=== PATIENT | female | born 2000 | race Caucasian/White ===

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

== ENCOUNTER 2021-01-12 05:56 | Emergency (ER) | payer OTHER, MEDICAID, SELFPAY ==
[2021-01-12 05:57] VITALS: BP 127/78; PULSE 101; RESP 16; TEMP 36.4; O2SAT 98; BMI 31.4
--- NOTE | 2021-01-12 06:16 | RAD_ITS ---
STUDY: X-RAY - RIGHT KNEE REASON FOR EXAM: Female, 20 years old. Injury TECHNIQUE: 4 view(s) of the knee. COMPARISON: Right knee x-ray February 12, 2019 FINDINGS: Normal visualized distal femur. There is visualized tunneling within the tibia. Normal proximal tibiofibular articulation. Normal medial femorotibial compartment. Normal lateral femorotibial compartment. There is minimal degenerative arthrosis of the patellofemoral articulation. The soft tissue structures are unremarkable. RAD/Knee 4 or More Views IMPRESSION: Status post anterior cruciate ligament repair. No visualized acute fracture. No visualized joint effusion. The visualized significant superficial soft tissue edema. There is a suggestion of minimal degenerative change. Electronically Signed: Diana Hernandez MD at 6:43 EDT Tel , Service support ,
--- NOTE | 2021-01-12 06:17 | ED.VIS.LOWEX ---
HPI History of Present Illness Chief Complaint: Lower Extremity Injury Informant: patient Occured/Mechanism Mechanism/Context: Yes injury and Yes fall Onset/Context/Timing Onset: Yesterday Current Severity: Mild Maximum Severity: Moderate Narrative Narrative: Patient presents secondary to posterior right knee pain. She states that she fell down approximately 10 steps at her house last night not realizing they were wet from the rain. She woke this morning around 4 AM with pain to the posterior knee. She did take ibuprofen at that time. Patient does have a history of a prior ACL repair to the right knee in 2017. She denies any anterior pain. She denies any other injury from the fall. [facility] Medical History Bipolar disorder Depressed Home Medications aripiprazole [Abilify] 30 mg PO DAILY 01/12/21 [History Last Taken Unknown] naproxen [Naprosyn] 500 mg PO BID PRN #20 tab 01/12/21 [Rx Last Taken Unknown] Allergy/AdvReac Type Severity Reaction Status Date / Time morphine Allergy Anaphylaxis Verified 11/25/20 22:23 Family History Other CVA (cerebral vascular accident) Hypertension Lymph node cancer Myocardial infarction Surgical History CEOT removed from jaw right knee ACL Social History Smoking Status: Never smoker ROS ROS ED Constitutional Constitutional ED: Denies chills or fever(s) Eyes Eyes: Denies change in vision ENT ENT ED: Denies rhinorrhea or sore throat Cardiovascular Cardiovascular: Denies chest pain Respiratory/Chest Respiratory/Chest: Denies cough or dyspnea Gastrointestinal Gastrointestinal: Denies abdominal pain, diarrhea or vomiting Musculoskeletal Musculoskeletal: Reports arthralgias; Denies back pain Integumentary Denies Abrasions or rash Neurologic Neurologic: Denies weakness Allergic/Immunologic Allergic/Immunologic ED: Denies urticaria EXAM Physical Exam Const Vital Signs: 01/12/21 05:57 Temperature 97.5 F L Temperature Source Oral Pulse Rate 101 H Respiratory Rate 16 Blood Pressure 127/78 H Blood Pressure Mean 94 Pulse Ox 98 Oxygen Delivery Method Room Air Positive well nourished and well developed General Appearance ED: well developed HEENT normocephalic Chest Wall inspection of chest normal and palpation of chest normal Resp normal respiratory effort and clear to auscultation bilaterally Cardio regular rate and regular rhythm GI non-tender Palpation: soft Extremity Extremity Narrative: Tenderness location of the musculature to the posterior right knee and proximal calf. No palpable masses or hematomas. No overlying skin change. Good range of motion of the knee without difficulty. Strong distal pulses. Patient does report decreased sensation to light touch of the lateral portion of the right lower leg, but states this is chronic from her surgery and unchanged from baseline. Psych mental status grossly normal Skin Lesions: no lesions Rashes: no rashes MDM MDM MDM Narrative Medical decision making narrative: Right knee x-rays obtained. Treatment and Re-Evaluation Comments:: Right knee x-ray per mitral rotation reveals no acute fracture. Meliton wrap is applied to the right knee. She is given a work note for today. She will begin a prescription for naproxen and referred to Dr. Dykes who she has seen most recently. Discharge Plan Triage Chief Complaint: Lower Extremity Injury ED Provider: Jaja Matute Dx/Rx/DC Orders Clinical Impression: Right knee sprain Instructions: ED Knee Sprain Prescriptions: New naproxen [Naprosyn] 500 mg tablet 500 mg PO BID PRN (Reason: pain) Qty: 20 RF: 0 No Action aripiprazole [Abilify] 30 mg Tablet 30 mg PO DAILY RF: 0 Stand Alone Forms: ED Work / School Excuse Primary Care Provider: Jigna Gamboa Referrals: Jigna Gamboa DO [Primary Care Provider] - Irvin Dykes DO [STAFF PHYSICIAN] - As Needed Disposition Disposition: Home, Self Care
== END 2021-01-12 06:46 | disposition home or self-care (01) ==
PROVIDERS: Emergency Provider Emergency Medicine; PCP Pediatrics
DX: S83.91XA Sprain of unspecified site of right knee, initial encounter (principal); F31.9 Bipolar disorder, unspecified; Z79.899 Other long term (current) drug therapy; W10.9XXA Fall (on) (from) unspecified stairs and steps, initial encounter
CPT/HCPCS: 73564; 99282

== ENCOUNTER 2021-01-24 21:12 | Emergency (ER) | payer OTHER, MEDICAID, SELFPAY ==
[2021-01-24 21:13] VITALS: BP 126/75; PULSE 64; RESP 16; TEMP 36.2; O2SAT 100; BMI 35.1
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
[2021-01-24] MEDS: 0.9% Normal Saline 1,000 ML 150 ML IV (22:53)
[2021-01-24 22:56] LABS: Absolute Lymphocyte Count 3.75 X10^3/uL (0.83-4.51); Absolute Neutrophil Count 4.4 X10^3/uL (2.0-7.7); Basophil# 0.06 X10^3/uL; Basophil% 0.6 % (0-1); Eosinophil# 0.55 X10^3/uL; Eosinophils% 5.7 % (0-5); Hematocrit 37.1 % (37-47); Hemoglobin 12.4 g/dL (12.0-15.0); Lymphocyte # 3.75 X10^3/ul (0.83-4.51); Lymphocyte % 39.2 % (19-41); Mean Corp Hgb Conc 33.4 g/dL (32-36); Mean Corpuscular Volume 86.9 fL (81-99); Mean Platelet Vol. 10.3 fl (6.2-12.0); Monocyte# 0.81 X10^3/uL; Monocyte% 8.5 % (0-10); NRBC Flagged by Analyzer 0 % (0-5); Neutrophil # 4.36 X10^3/uL (2.7-7.7); Neutrophil % 45.6 % (47-70); Platelet Count 352 K/mm3 (150-450); RBC Distribution Width CV 12.1 % (11.6-14.6); RBC Distribution Width SD 38.6 fl (35.1-43.9); Red Blood Count 4.27 M/mm3 (4.2-5.4); White Blood Count 9.6 K/mm3 (4.4-11.0)
[2021-01-24 23:11] LABS: Internal QC Validated? YES +Cl - CLEAR BKGD; Pregnancy, Serum, hCG Quali. NEGATIVE Negative
[2021-01-24 23:13] LABS: ALB/GLOB Ratio 0.8 RATIO (0.9-2.4); AST(SGOT) 24 U/L (15-37); Alanine Aminotransfer ALT/SGPT 32 U/L (13-56); Albumin, Serum 3.4 g/dL (3.2-5.0); Alkaline Phosphatase 98 U/L (45-117); Anion Gap 7 (5-15); BUN 7 mg/dL (7-18); BUN/Creat Ratio 9.9 RATIO (10-20); Calcium,Total 8.3 mg/dL (8.5-10.1); Chloride 108 mmol/L (98-107); Creatinine, Serum 0.71 mg/dL (0.55-1.02); EST Glomerular Filtration Rate 112 mL/min (>60); Est Glom Filt Rate - Afr Amer 136 mL/min (>60); Estimated Creatinine Clearance 119.31 ml/min; Glucose 91 mg/dL (74-106); Potassium 3.8 mmol/L (3.5-5.1); Protein, Total 7.4 g/dL (6.4-8.2); Sodium Level 140 mmol/L (136-145)
[2021-01-24 23:29] VITALS: BP 140/76; PULSE 86; RESP 17; O2SAT 98
[2021-01-24 23:39] LABS: Red Blood Cells-Urine 0 SEEN /hpf (0-5)
[2021-01-24 23:40] LABS: Color, Urine Yellow (Yellow); Glucose, Dipstick Normal (Normal); Ketone-Dipstick Negative (Negative); Leukocyte Esterase-Dipstick Negative /ul (Negative); Nitrite-Dipstick Negative (Negative); Occult Blood-Urine Negative /ul (Negative); Protein-Dipstick Negative (Negative); Urine Bilirubin Dipstick Negative (Negative); Urine Clarity Clear (Clear); Urine Urobilinogen Normal (Normal)
[2021-01-25 00:03] LABS: Bacteria 1+ /hpf (None Seen); Mucous, Urine 1+ /hpf (<or=2+); Squamous Epithelial Cells - UA 5-10 SEEN /hpf (5-10); White Blood Cells 0-5 SEEN /hpf (0-5)
[2021-01-25 00:15] VITALS: BP 138/74; PULSE 74; RESP 16; O2SAT 97
== END 2021-01-25 00:23 | disposition home or self-care (01) ==
PROVIDERS: Emergency Provider Emergency Medicine
DX: B34.9 Viral infection, unspecified (principal); Z79.1 Long term (current) use of non-steroidal anti-inflammatories (NSAID); Z79.899 Other long term (current) drug therapy
CPT/HCPCS: 80053; 81001; 84703; 85025; 87426; 99283; J7030; A4216

== ENCOUNTER 2021-01-31 19:27 | Emergency (ER) | payer OTHER, MEDICAID, SELFPAY ==
[2021-01-31 19:27] VITALS: BP 127/55; PULSE 94; RESP 18; TEMP 35.7; O2SAT 98; BMI 35.3
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
--- NOTE | 2021-01-31 21:14 | ED.RN ---
PT left with s/o, unable to wait for discharge instructions.
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
== END 2021-01-31 20:36 | disposition home or self-care (01) ==
PROVIDERS: Emergency Provider Emergency Medicine
DX: S80.811A Abrasion, right lower leg, initial encounter (principal); F31.9 Bipolar disorder, unspecified; W34.010A Accidental discharge of airgun, initial encounter; Z79.899 Other long term (current) drug therapy
CPT/HCPCS: 73590; 99282

== ENCOUNTER 2021-03-01 17:06 | Emergency (ER) | payer OTHER, MEDICAID, SELFPAY ==
[2021-03-01 17:06] VITALS: BP 137/60; PULSE 99; RESP 18; TEMP 36.3; O2SAT 98; BMI 35.2
--- NOTE | 2021-03-01 17:37 | EKG12_ITS ---
Test Reason : CP Blood Pressure : / mmHG Vent. Rate : 065 BPM Atrial Rate : 065 BPM P-R Int : 158 ms QRS Dur : 094 ms QT Int : 390 ms P-R-T Axes : 028 053 041 degrees QTc Int : 405 ms Sinus rhythm with marked sinus arrhythmia Otherwise normal ECG Confirmed by ROSY JON, RAYMOND ([id number]), editor publications CASSIE BERNSTEIN ([id number]) on 03/02/2021 11:28:45 AM Referred By: SERGIO Confirmed By:RAYMOND GALLEGOS MD
--- NOTE | 2021-03-01 17:46 | ED.VIS.CHEST ---
HPI History of Present Illness Chief Complaint: Chest Pain Narrative Narrative: 20-year-old female with left-sided chest pain which is reproducible for a month. She said that she does not take anything for it because she does not think anything will help. She has not tried ice or heat, ibuprofen, Tylenol. She denies shortness of breath, fever, chills. Patient does state that 2 weeks ago she had an episode of syncope but that she does not have return of this. There is no history of sudden cardiac in her family. She does relate heart disease in her family but not at an early age such as 20. Patient is eating and drinking normally. Is making normal urine and stool. [facility] Medical History Bipolar disorder Depressed Home Medications aripiprazole [Abilify] 5 mg PO DAILY 01/12/21 [History Last Taken Unknown] Allergy/AdvReac Type Severity Reaction Status Date / Time morphine Allergy Anaphylaxis Verified 03/01/21 17:06 Family History Other CVA (cerebral vascular accident) Hypertension Lymph node cancer Myocardial infarction Surgical History CEOT removed from jaw right knee ACL Social History Smoking Status: Never smoker ROS ROS ED Constitutional Constitutional ED: Denies chills or fever(s) Eyes Eyes: Denies none or blurry vision ENT ENT ED: Denies rhinorrhea or sore throat Cardiovascular Cardiovascular: Reports chest pain and other Details: Syncope 2 weeks ago ; Denies palpitations or racing heartbeat Respiratory/Chest Respiratory/Chest: Denies cough, dyspnea, dyspnea on exertion or sputum Gastrointestinal Gastrointestinal: Denies abdominal pain, nausea or vomiting Genitourinary Genitourinary ED: Denies dysuria or hematuria Musculoskeletal Musculoskeletal: Denies arthralgias or myalgias Integumentary Denies abscess or rash Neurologic Neurologic: Denies headache(s) or paresthesias EXAM Physical Exam Const Vital Signs: 03/01/21 17:06 03/01/21 18:25 03/01/21 18:30 Temperature 97.4 F L Temperature Source Temporal Pulse Rate 99 78 Pulse Rate [Lying] 61 Pulse Rate [Sitting] 65 Pulse Rate [Standing] 91 Respiratory Rate 18 Blood Pressure 137/60 H 104/65 Blood Pressure [Lying] 113/63 Blood Pressure [Sitting] 120/68 Blood Pressure [Standing] 104/65 Blood Pressure Mean 85 78 Blood Pressure Mean [Lying] 79 Blood Pressure Mean [Sitting] 85 Blood Pressure Mean [Standing] 78 Pulse Ox 98 96 Oxygen Delivery Method Room Air Room Air Positive well nourished General Appearance ED: NAD; Negative for pallor HEENT normocephalic and atraumatic Chest Wall Chest: tenderness sternoclavicular joint left Resp normal respiratory effort Effort and Inspection: respiratory distress Cardio regular rate and regular rhythm Neuro oriented x3 Sensorium / Orientation: awake and alert Psych mental status grossly normal Skin General Skin Exam: Negative for jaundice or pallor Heart Score History: Slightly/Non-Suspicious ECG: Normal Age: </= 45 years Risk Factors: No Risk Factors Score: 0 MDM MDM MDM Narrative Medical decision making narrative: I suspect patient has costochondritis based on her exam and her history of a month of pain as well as it is being reproducible. I do not believe this is cardiac. She is PERC negative. Her lungs are clear on exam. Her vital signs are stable and she is afebrile. I will obtain a chest x-ray and an EKG as well as orthostatic vital signs as she had an episode of syncope 2 weeks ago. I do not believe the patient needs blood work at this time. EKG on my interpretation shows a normal sinus rhythm with a ventricular to 65 bpm without signs of ischemic change or dysrhythmia. No signs of Brugada or WPW. No evidence of hypertrophic cardiomyopathy. Orthostatic vital signs are negative. Chest x-ray my interpretation shows no acute cardiopulmonary process and the radiologist does agree. Clinically the patient has costochondritis and needs Tylenol and ibuprofen alternating doses. I do not believe she needs blood work she is 20 and has no cardiac risk factors and is well she is PERC negative. Patient will be counseled of this. She will be discharged home in stable condition. Impression: 1 costochondritis 2. History of syncope Radiography Diagnostic Testing: Clinical Impression(s) from Imaging Studies Chest X-Ray 03/01/21 18:10 IMPRESSION: No radiographic evidence of acute cardiopulmonary disease. Electronically Signed: Shaw Hopkins MD at 18:25 EST , Service support , Discharge Plan Triage Chief Complaint: Chest Pain ED Provider: Car Pace Dx/Rx/DC Orders Prescriptions: No Action aripiprazole [Abilify] 30 mg Tablet 5 mg PO DAILY RF: 0 Primary Care Provider: Care Physician,No Primary
[2021-03-01] MEDS: Ketorolac 15 MG/ML Vial IV (18:02)
--- NOTE | 2021-03-01 18:10 | RAD_ITS ---
EXAM: XR CHEST, 1 VIEW CLINICAL INDICATION: chest pain TECHNIQUE: Frontal view of the chest. This report was created using [employer] report generation technology. COMPARISON: None. FINDINGS: LUNGS AND PLEURAL SPACES: Unremarkable. No consolidation or edema. No pneumothorax. No effusion. HEART: Unremarkable. Cardiac silhouette not enlarged. MEDIASTINUM: Central airways and mediastinal contour are unremarkable. BONES/JOINTS: Unremarkable. SOFT TISSUES: Unremarkable. RAD/Chest 1 View (Portable) IMPRESSION: No radiographic evidence of acute cardiopulmonary disease. Electronically Signed: Shaw Hopkins MD at 18:25 EST , Service support ,
[2021-03-01 18:25] VITALS: BP 104/65; BP 113/63; BP 120/68; PULSE 61; PULSE 65; PULSE 91
[2021-03-01 18:30] VITALS: BP 104/65; PULSE 78; O2SAT 96
== END 2021-03-01 19:14 | disposition home or self-care (01) ==
PROVIDERS: Emergency Provider Student in an Organized Health Care Education/Training Program
DX: M94.0 Chondrocostal junction syndrome [Tietze] (principal); Z79.899 Other long term (current) drug therapy
CPT/HCPCS: 71045; 93005; 96374; 99283; J7030

== ENCOUNTER 2021-03-22 11:54 | Emergency (ER) | payer OTHER, MEDICAID, SELFPAY ==
[2021-03-22 11:55] VITALS: BP 119/74; PULSE 71; RESP 15; TEMP 36.1; O2SAT 99; BMI 35.5
--- NOTE | 2021-03-22 11:56 | RAD_ITS ---
STUDY: X-RAY - RIGHT HAND REASON FOR EXAM: Right thumb and hand pain and swelling, right thumb injury. TECHNIQUE: 3 view(s) of the hand. COMPARISON: Radiographs 11/16/2020. FINDINGS: Normal radiocarpal articulation. Normal distal radioulnar joint. Normal visualized carpal bones. Normal carpal articulations Normal carpometacarpal articulation of the thumb. Normal second through fifth carpometacarpal joints. There is healed fracture deformity of the neck of the fifth metacarpal. Normal metacarpophalangeal joint of the thumb. Normal interphalangeal joint of the thumb. Normal proximal and distal phalanges of the thumb. Normal metacarpophalangeal joints of the second through fifth fingers. Normal proximal and distal interphalangeal joints of the second through fifth fingers. Normal phalanges of the second through fifth fingers. The soft tissue structures are unremarkable. RAD/Hand Min 3 Views IMPRESSION: Healed fracture of the fifth metacarpal. No demonstrated acute fracture. Electronically Signed: Winston De La O MD at 14:15 EST Tel , Service support ,
--- NOTE | 2021-03-22 12:24 | EX.ED.UPPERE ---
HPI History of Present Illness Chief Complaint: Upper Extremity Injury Informant: patient Narrative Narrative: Patient slipped and fell on her right hand this morning due to icy steps. She has pain in her thumb mostly at the MCP joint. No wrist pain elbow pain shoulder pain. She never hit her head. No other areas of discomfort. She is right-hand dominant. Worse with motion better with rest. PFSH PFSH Medical History Bipolar disorder Depressed Home Medications aripiprazole [Abilify] 5 mg PO DAILY 01/12/21 [History Last Taken Unknown] Allergy/AdvReac Type Severity Reaction Status Date / Time morphine Allergy Anaphylaxis Verified 03/22/21 11:57 Family History Other CVA (cerebral vascular accident) Hypertension Lymph node cancer Myocardial infarction Surgical History CEOT removed from jaw right knee ACL Social History Smoking Status: Never smoker ROS ROS ED Constitutional Constitutional ED: Denies fever(s) Eyes Eyes: Denies blurry vision Cardiovascular Cardiovascular: Denies palpitations Gastrointestinal Gastrointestinal: Denies nausea or vomiting Musculoskeletal Musculoskeletal: Reports other Details: See history of present illness. ; Denies back pain, myalgias or neck pain Integumentary Reports other Details: No abrasion or skin changes. ; Denies rash Neurologic Neurologic: Denies paresthesias or weakness EXAM Physical Exam Const Vital Signs: 03/22/21 11:55 Temperature 96.9 F L Temperature Source Temporal Pulse Rate 71 Respiratory Rate 15 Blood Pressure 119/74 Blood Pressure Mean 89 Pulse Ox 99 Oxygen Delivery Method Room Air Positive well nourished and well developed General Appearance ED: well developed and NAD Resp normal respiratory effort Extremity normal to inspection Extremity Narrative: No swelling at this point. She does have tenderness mostly right at the MCP joint. No thenar eminence tenderness. There is no snuffbox or wrist tenderness. Range of motion of the wrist is good. I overall see no deformity at this time. No abrasion. Capillary refill is normal. Distal sensation is normal. Range of motion is a little bit limited due to discomfort. Neuro no focal motor deficits and no sensory deficits noted Sensorium / Orientation: alert Skin Lesions: no lesions Rashes: no rashes MDM MDM MDM Narrative Medical decision making narrative: Three-view x-ray of the hand looked at by me shows no sign of fracture or dislocation. I think ice rest and nonsteroidals are appropriate. We will offer her an aluminum splint just to wear for a few days for comfort. Home although I would take this off several times a day to put thumb through gentle passive range of motion. Follow-up if not getting markedly better in 3 to 7 days Discharge Plan Triage Chief Complaint: Upper Extremity Injury ED Provider: Charli Hendricks Dx/Rx/DC Orders Clinical Impression: Fall from slipping, Contusion of right thumb Instructions: ED Finger Contusion Prescriptions: No Action aripiprazole [Abilify] 30 mg Tablet 5 mg PO DAILY RF: 0 Primary Care Provider: Care Physician,No Primary Referrals: Garrison Avelar MD [STAFF PHYSICIAN] - 1 Week if not improving Care Physician,No Primary [Primary Care Provider] - Disposition Disposition: Home, Self Care
[2021-03-22 14:09] VITALS: BP 124/76; PULSE 80; RESP 17; O2SAT 99
== END 2021-03-22 14:10 | disposition home or self-care (01) ==
PROVIDERS: Emergency Provider Emergency Medicine
DX: S60.011A Contusion of right thumb without damage to nail, initial encounter (principal); F31.9 Bipolar disorder, unspecified; W01.0XXA Fall on same level from slipping, tripping and stumbling without subsequent striking against object, initial encounter; Z79.899 Other long term (current) drug therapy
CPT/HCPCS: 73130; 99283

== ENCOUNTER 2021-04-04 17:40 | Emergency (ER) | payer OTHER, MEDICAID, SELFPAY ==
[2021-04-04 17:41] VITALS: BP 128/70; PULSE 94; RESP 16; TEMP 36.6; O2SAT 99; BMI 35.5
== END 2021-04-04 19:48 | disposition left against medical advice (07) ==
LOC: ED 19:50
DX: Z53.21 Procedure and treatment not carried out due to patient leaving prior to being seen by health care provider (principal)

== ENCOUNTER 2021-05-30 09:54 | Emergency (ER) | payer MEDICAID, SELFPAY ==
[2021-05-30 09:55] VITALS: BP 147/64; PULSE 79; RESP 16; TEMP 36.6; O2SAT 100; BMI 35.5
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
--- NOTE | 2021-05-30 10:22 | RAD_ITS ---
STUDY: X-RAY - UNILATERAL RIBS ( RIGHT ) WITH CHEST REASON FOR EXAM: Female, 20 years old. Injury TECHNIQUE - RIBS: 2 view(s) of the ribs. TECHNIQUE - CHEST: Single PA view of the chest. COMPARISON: None. FINDINGS - RIBS: Normal visualized ribs without a demonstrated fracture. FINDINGS - CHEST: The lungs are clear and expanded. There is no demonstrated pleural abnormality. Normal size heart. Normal mediastinum and kody. Normal visualized pulmonary arteries. Normal visualized aortic arch and descending thoracic aorta. Normal visualized thoracic spine. Normal visualized ribs, clavicles, and shoulders. There is no demonstrated abnormality of the visualized soft tissue structures of the upper abdomen. RAD/Ribs Uni Min 3V w/PA Chest IMPRESSION: RIBS: Normal x-ray examination of the ribs. CHEST: Normal x-ray examination of the chest. Electronically Signed: Magdi Walker MD at 10:48 EST ,
[2021-05-30] MEDS: Naproxen 500 MG Tablet PO (10:27)
== END 2021-05-30 11:10 | disposition home or self-care (01) ==
LOC: ED 11:05
PROVIDERS: Emergency Provider Emergency Medicine; Visit Provider Emergency Medicine
DX: S20.219A Contusion of unspecified front wall of thorax, initial encounter (principal); F31.9 Bipolar disorder, unspecified; V49.88XA Car occupant (driver) (passenger) injured in other specified transport accidents, initial encounter; Z79.899 Other long term (current) drug therapy
CPT/HCPCS: 71101; 99283

== ENCOUNTER 2021-06-13 18:21 | Emergency (ER) | payer MEDICAID, SELFPAY ==
[2021-06-13 18:21] VITALS: BP 119/76; PULSE 77; RESP 18; TEMP 36; O2SAT 98; BMI 35.5
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
--- NOTE | 2021-06-13 20:11 | ED.RN ---
CALLED AT 2010, NO ANSWER.
== END 2021-06-13 23:59 | disposition left against medical advice (07) ==
LOC: ED 06-14 00:19
DX: Z53.21 Procedure and treatment not carried out due to patient leaving prior to being seen by health care provider (principal)
CPT/HCPCS: 73130

== ENCOUNTER 2021-08-25 07:41 | Emergency (ER) | payer MEDICAID, SELFPAY ==
[2021-08-25 07:43] VITALS: BP 132/71; PULSE 74; RESP 14; TEMP 35.7; O2SAT 98; BMI 36.5
--- NOTE | 2021-08-25 07:56 | RAD_ITS ---
STUDY: X-RAY - RIGHT FOOT CLINICAL: Female, 20 years old. Injury TECHNIQUE: 3 view(s) of the foot. COMPARISON: None. FINDINGS: Normal talus, calcaneus, and tarsal bones. Normal visualized subtalar, talonavicular, calcaneocuboid, tarsal and tarsometatarsal articulations. Normal metatarsi. Normal metatarsophalangeal joint of the great toe. Normal tibial and fibular sesamoid bones. Normal interphalangeal joint of the great toe. Normal phalanges of the great toe. Normal second through fifth metatarsophalangeal joints. Normal interphalangeal joints and phalanges of the lesser toes. The soft tissue structures are unremarkable. RAD/Foot min 3 Views IMPRESSION: Normal x-ray examination of the foot. Electronically Signed: Magdi Walker MD at 8:35 EDT ,
--- NOTE | 2021-08-25 08:00 | RAD_ITS ---
STUDY: X-RAY - RIGHT ANKLE REASON FOR EXAM: Female, 20 years old. Injury TECHNIQUE: 3 view(s) of the ankle. COMPARISON: None. FINDINGS: Normal visualized distal tibia and fibula. Normal medial and lateral malleoli. Normal tibiotalar articulation and ankle mortise. Normal visualized talus and calcaneus. The visualized subtalar, talonavicular, calcaneocuboid and tarsal articulations are normal. Lateral soft tissue swelling. RAD/Ankle min 3 Views IMPRESSION: Lateral soft tissue swelling. Electronically Signed: Magdi Walker MD at 8:34 EDT ,
[2021-08-25] MEDS: Naproxen 250 MG Tablet 500 MG PO (08:02)
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
== END 2021-08-25 09:13 | disposition home or self-care (01) ==
PROVIDERS: Emergency Provider Emergency Medicine; Visit Provider Emergency Medicine
DX: S93.401A Sprain of unspecified ligament of right ankle, initial encounter (principal); E66.9 Obesity, unspecified; X50.1XXA Overexertion from prolonged static or awkward postures, initial encounter
CPT/HCPCS: 73610; 73630; 99283

== ENCOUNTER 2021-11-14 13:59 | Emergency (ER) | payer MEDICAID, SELFPAY ==
[2021-11-14 14:00] VITALS: BP 131/77; PULSE 108; RESP 18; TEMP 37.1; O2SAT 97; BMI 35.7
[2021-11-14] MEDS: Metoclopramide 10 MG Tablet PO (14:38)
--- NOTE | 2021-11-14 15:12 | EX.ED.VIS.UR ---
HPI HPI - URI History of Present Illness Chief Complaint: Cough Informant: patient Onset/Context/Timing Onset: Days (3) Context: Gradual Onset Timing: Continuous Quality: Malaise Location: All over Current Severity: Moderate Maximum Severity: Moderate Associated Symptoms Associated Symptoms: Positive for Nasal Congestion, Headache, Nausea, Vomiting, Diarrhea and Nonproductive cough; Negative for Shortness of Breath or Chest Pain Narrative Narrative: Patient with COVID symptoms including loss of taste for the past 2 or 3 days. She did not test at home, she is never been vaccinated. She is healthy otherwise. ROS ROS ED Constitutional Constitutional ED: Reports body ache(s), chills, fatigue, fever(s), headache(s) and malaise Eyes Eyes: Denies change in vision or diplopia ENT ENT ED: Denies rhinorrhea or sore throat Cardiovascular Cardiovascular: Denies chest pain or palpitations Respiratory/Chest Respiratory/Chest: Reports cough, dyspnea and dyspnea on exertion Gastrointestinal Gastrointestinal: Reports diarrhea, nausea and vomiting; Denies abdominal pain Genitourinary Genitourinary ED: Denies dysuria or hematuria Musculoskeletal Musculoskeletal: Denies back pain or neck pain Integumentary Denies abscess or rash Neurologic Neurologic: Reports headache(s); Denies paresthesias or weakness Psychiatric Psychiatric: Denies anxiety or suicidal thoughts [facility] Medical History Abrasion of right leg Bipolar disorder Depressed Mild dehydration Other tear of lateral meniscus, current injury, right knee, subsequent encounter Other tear of medial meniscus, current injury, right knee, initial encounter (09/19/16) Sprain of anterior cruciate ligament of right knee, initial encounter (08/16/16) Sprain of anterior cruciate ligament of right knee, subsequent encounter Home Medications NK 11/14/21 [History Last Taken Unknown] Allergy/AdvReac Type Severity Reaction Status Date / Time morphine Allergy Anaphylaxis Verified 11/14/21 14:00 Family History Other CVA (cerebral vascular accident) Hypertension Lymph node cancer Myocardial infarction Surgical History CEOT removed from jaw right knee ACL Social History Smoking Status: Never smoker EXAM Physical Exam Const Vital Signs: 11/14/21 14:00 11/14/21 14:06 11/14/21 14:06 Temperature 98.7 F Temperature Source Temporal Pulse Rate 108 H Respiratory Rate 18 Respiratory Effort Normal Non-Labored Normal Non-Labored Respiratory Depth Normal Respiratory Pattern Normal Normal Blood Pressure 131/77 H Blood Pressure Mean 95 Pulse Ox 97 Oxygen Delivery Method Room Air Positive well nourished and well developed Constitutional Narrative: Malaised-appearing, no distress General Appearance ED: well developed and NAD HEENT Reports moist mucous membranes normocephalic and atraumatic Eyes PERRL and EOMs intact bilaterally Neck full ROM and supple Resp normal respiratory effort and clear to auscultation bilaterally Cardio regular rate, regular rhythm and no murmurs Rate: Negative for tachycardic GI non-tender and non-distended Auscultation: normoactive bowel sounds Palpation: soft Back/Spine no CVA tenderness General Back: other FROM Extremity normal to inspection and no calf tenderness General Extremety ED: Negative for edema, pulses abnormal or tenderness General Extremity: Negative for edema or pulses abnormal Neuro oriented x3, CN's II-XII intact bilaterally and no sensory deficits noted Sensorium / Orientation: awake and alert Motor Exam: strength 5/5 throughout Skin no rashes or lesions noted and no wounds MDM MDM MDM Narrative Medical decision making narrative: COVID swab is positive confirming COVID-19. Given that this patient is 21 and healthy, she is at relatively low risk for progression to moderate-severe disease especially during the current omicron 5 variant. At this time she will be discharged with symptomatic treatment. We discussed reasons to return. Discharge Plan Triage Chief Complaint: Cough ED Provider: Johann Ovalle Dx/Rx/DC Orders Clinical Impression: COVID-19 Instructions: Coronavirus Disease 2019 (COVID-19): Caring for Yourself or Others Prescriptions: No Action NK Primary Care Provider: Care Physician,No Primary Referrals: Care Physician,No Primary [Primary Care Provider] - Doctor,Your [STAFF PHYSICIAN] - As Needed Activity Restrictions/Additional Instructions: Your COVID test is positive. Stay away from other people. CDC states that you may stop wearing an N95 mask around other people after 10 days of illness. This would be next Saturday. Try to get a home portable pulse oximeter and closely watch your oxygen levels periodically. If you stay below 90% for more than a minute or so, and/or you are feeling like your breathing is getting worse, return to the emergency department for further evaluation. Disposition Disposition: Home, Self Care
--- NOTE | 2021-11-14 15:29 | ED.RN ---
pulse ox given at dc
== END 2021-11-14 15:29 | disposition home or self-care (01) ==
PROVIDERS: Emergency Provider Emergency Medicine; Visit Provider Emergency Medicine
DX: U07.1 COVID-19 (principal)
CPT/HCPCS: 87811; 99283

== ENCOUNTER 2021-12-05 23:36 | Emergency (ER) | payer MEDICAID, SELFPAY ==
[2021-12-05 23:37] VITALS: BP 128/76; PULSE 76; RESP 18; TEMP 36.1; O2SAT 97; BMI 35.5
--- NOTE | 2021-12-05 23:43 | EX.ED.UPPERE ---
HPI History of Present Illness Chief Complaint: Upper Extremity Injury Informant: patient Narrative Narrative: 21-year-old female states that 2 hours ago she tripped going down her stairs and injured her right hand. She notes swelling and pain over the fifth and fourth MCP joints. She states is very painful for her to straighten her fingers but she is able to do it. She denies any other injuries. She states that she tried to go to work but just could not function due to the pain [facility] Medical History Abrasion of right leg Bipolar disorder Depressed Mild dehydration Other tear of lateral meniscus, current injury, right knee, subsequent encounter Other tear of medial meniscus, current injury, right knee, initial encounter (09/19/16) Sprain of anterior cruciate ligament of right knee, initial encounter (08/16/16) Sprain of anterior cruciate ligament of right knee, subsequent encounter Home Medications NK 11/14/21 [History Last Taken Unknown] Allergy/AdvReac Type Severity Reaction Status Date / Time morphine Allergy Anaphylaxis Verified 11/14/21 14:00 Family History Other CVA (cerebral vascular accident) Hypertension Lymph node cancer Myocardial infarction Surgical History CEOT removed from jaw right knee ACL Social History (Updated 12/05/21 @ 23:[address] Jhonathan Giordano DO) current occupational status: employed Smoking Status: Never smoker ROS ROS ED Constitutional Constitutional ED: Denies chills or weight loss Eyes Eyes: Denies change in vision or diplopia ENT ENT ED: Denies ear pain, rhinorrhea or sore throat Cardiovascular Cardiovascular: Denies chest pain, orthopnea, palpitations or racing heartbeat Respiratory/Chest Respiratory/Chest: Denies cough, dyspnea or orthopnea Gastrointestinal Gastrointestinal: Denies abdominal pain, diarrhea, nausea or vomiting Genitourinary Genitourinary ED: Denies dysuria, hematuria or urinary frequency Musculoskeletal Musculoskeletal: Reports other Details: See history of present illness ; Denies arthralgias or myalgias Integumentary Denies abscess or rash Neurologic Neurologic: Denies headache(s) or weakness Psychiatric Psychiatric: Denies anxiety, depression, suicidal ideation or suicidal thoughts Endocrine Endocrinology: Denies polydipsia, polyphagia or polyuria Allergic/Immunologic Allergic/Immunologic ED: Denies mouth swelling, tongue swelling or urticaria EXAM Physical Exam Const Vital Signs: 12/05/21 23:37 Temperature 97 F L Temperature Source Temporal Pulse Rate 76 Respiratory Rate 18 Blood Pressure 128/76 H Blood Pressure Mean 93 Pulse Ox 97 Oxygen Delivery Method Room Air Positive well nourished and well developed General Appearance ED: well developed HEENT Reports normocephalic, head/scalp atraumatic and moist mucous membranes Eyes PERRL and EOMs intact bilaterally Neck no lymphadenopathy, supple and no JVD Resp normal respiratory effort and clear to auscultation bilaterally Cardio regular rate, regular rhythm and no murmurs GI normal to inspection, nondistended, normoactive bowel sounds and non-tender Palpation: soft Back/Spine no CVA tenderness and normal ROM Extremity Extremity Narrative: There is some mild swelling and contusion located over the fourth and the fifth MCP joint of the right hand. Tendon function appears normal. NVI. General Extremety ED: Negative for edema General Extremity: Negative for edema Neuro oriented x3 and CN's II-XII intact bilaterally Sensorium / Orientation: alert Motor Exam: strength 5/5 throughout Psych mental status grossly normal Mood & Affect: Negative for depressed or tearful Skin no rashes or lesions noted and no wounds MDM MDM MDM Narrative Medical decision making narrative: My interpretation of the plain films of the right hand is no acute fracture. Patient be discharged home with supportive care recommend Tylenol Motrin and ice. Return if worsening or concerns follow-up with primary care 10 to 14 days if not improved Discharge Plan Triage Chief Complaint: Upper Extremity Injury ED Provider: Jhonathan Giordano Dx/Rx/DC Orders Clinical Impression: Contusion of hand, right, Hand pain, right Instructions: ED Hand Contusion Prescriptions: No Action NK Primary Care Provider: Car Singh NP Referrals: Care Physician,No Primary [Non-Staff] - Car Singh NP, [employer] [Primary Care Provider] - As Needed Disposition Disposition: Home, Self Care
--- NOTE | 2021-12-05 23:48 | RAD_ITS ---
STUDY: X-RAY - RIGHT HAND REASON FOR EXAM: Female, 21 years old. Fall down steps, right fourth and fifth digit pain TECHNIQUE: 3 view(s) of the hand. COMPARISON: 03/22/2021 FINDINGS: Normal radiocarpal articulation. Normal distal radioulnar joint. Normal visualized carpal bones. Normal carpal articulations Normal carpometacarpal articulation of the thumb. Normal second through fifth carpometacarpal joints. Normal metacarpi. Normal metacarpophalangeal joint of the thumb. Normal interphalangeal joint of the thumb. Normal proximal and distal phalanges of the thumb. Normal metacarpophalangeal joints of the second through fifth fingers. Normal proximal and distal interphalangeal joints of the second through fifth fingers. Normal phalanges of the second through fifth fingers. The soft tissue structures are unremarkable. RAD/Hand Min 3 Views IMPRESSION: The fourth and fifth digits appear intact. No acute abnormal finding. Electronically Signed: Branden Aguilar MD at 0:24 EDT ,
[2021-12-06 00:34] VITALS: BP 128/76; PULSE 76; RESP 18; O2SAT 97
== END 2021-12-06 00:35 | disposition home or self-care (01) ==
PROVIDERS: Emergency Provider Emergency Medicine; PCP Nurse Practitioner; Visit Provider Emergency Medicine
DX: S60.221A Contusion of right hand, initial encounter (principal); W18.40XA Slipping, tripping and stumbling without falling, unspecified, initial encounter; Y93.89 Activity, other specified; Y99.9 Unspecified external cause status; Y92.89 Other specified places as the place of occurrence of the external cause
CPT/HCPCS: 73130; 99283

== ENCOUNTER 2021-12-30 07:46 | Emergency (ER) | payer MEDICAID, SELFPAY ==
[2021-12-30 07:47] VITALS: BP 128/69; PULSE 70; RESP 16; TEMP 36.6; O2SAT 100; BMI 35.5
--- NOTE | 2021-12-30 07:55 | EDS_ITS ---
HPI History of Present Illness Chief Complaint: Upper Extremity Injury Detail of Chief Complaint: Injury to right hand Informant: patient Narrative Narrative: Patient presents the emergency department with an injury to her right hand that occurred this morning. Patient states that she was pulling something off of a vehicle that was dangling and she struck her right hand against the muffler. Patient is right-hand dominant. Complains of pain with movement of the hand. Complains of bruising to the hand. Patient tells me she has broken the hand before. [facility] Medical History Abrasion of right leg Bipolar disorder Depressed Mild dehydration Other tear of lateral meniscus, current injury, right knee, subsequent encounter Other tear of medial meniscus, current injury, right knee, initial encounter (09/19/16) Sprain of anterior cruciate ligament of right knee, initial encounter (08/16/16) Sprain of anterior cruciate ligament of right knee, subsequent encounter Home Medications NK 11/14/21 [History Last Taken Unknown] Allergy/AdvReac Type Severity Reaction Status Date / Time morphine Allergy Anaphylaxis Verified 12/30/21 07:49 Family History Other CVA (cerebral vascular accident) Hypertension Lymph node cancer Myocardial infarction Surgical History CEOT removed from jaw right knee ACL Social History (Updated 12/05/21 @ 23:[address] Jhonathan Giordano DO) current occupational status: employed Smoking Status: Never smoker ROS ROS ED Review of Systems ROS Unobtainable: other Constitutional Constitutional ED: Reports lethargy; Denies chills, fever(s), sweats or weight loss Eyes Eyes: Denies blurry vision, change in vision or diplopia ENT ENT ED: Denies rhinorrhea or sore throat Cardiovascular Cardiovascular: Denies chest pain, orthopnea or racing heartbeat Respiratory/Chest Respiratory/Chest: Denies cough, dyspnea, dyspnea on exertion, orthopnea or sputum Gastrointestinal Gastrointestinal: Denies abdominal pain, diarrhea, nausea or vomiting Genitourinary Genitourinary ED: Denies dysuria, hematuria or urinary frequency Musculoskeletal Musculoskeletal: Reports other Details: Right hand pain/injury ; Denies arthralgias, back pain, myalgias or neck pain Integumentary Denies abscess, Abrasions or rash Neurologic Neurologic: Denies headache(s) or weakness Psychiatric Psychiatric: Denies anxiety, depression or suicidal thoughts Endocrine Endocrinology: Denies polydipsia, polyphagia or polyuria Hematologic/Lymphatic Hematologic/Lymphatic: Denies easy bleeding, easy bruising or lymphadenopathy Allergic/Immunologic Allergic/Immunologic ED: Denies mouth swelling, tongue swelling or urticaria EXAM Physical Exam Const Vital Signs: 12/30/21 07:47 Temperature 97.9 F Temperature Source Temporal Pulse Rate 70 Respiratory Rate 16 Blood Pressure 128/69 H Blood Pressure Mean 88 Pulse Ox 100 Oxygen Delivery Method Room Air Positive well nourished and well developed General Appearance ED: well developed and NAD HEENT Reports TM's clear and moist mucous membranes normocephalic and atraumatic; Negative for trauma or tenderness Tympanic Membrane ED: Yes TM's clear Eyes PERRL and EOMs intact bilaterally General Eye ED: Negative for pale conjunctiva or scleral icterus Neck no lymphadenopathy, supple and no JVD General: Negative for tenderness Chest Wall inspection of chest normal and palpation of chest normal Chest: Negative for tenderness Resp normal respiratory effort and clear to auscultation bilaterally Effort and Inspection: Negative for respiratory distress or pain with movement Auscultation: Negative for rhonchi, wheezes or diminished lung sounds Cardio regular rate, regular rhythm, S1 normal heart sound, S2 normal heart sound and no murmurs Peripheral Pulses: pulses 2+ throughout GI normal to inspection, nondistended, normoactive bowel sounds, soft to palpation, non-tender, non-distended and no masses Back/Spine no CVA tenderness and no thoracic nor lumbar tenderness Extremity Extremity Narrative: Evaluation of the right hand reveals some ecchymosis and bruising over the dorsal aspect of the third, fourth, and fifth MCP joints. Patient has pain mostly over the fourth MCP joint and fourth metacarpal. No obvious deformity noted. Decreased range of motion in flexion of the digits secondary to pain and swelling. She is neurovascularly intact. No pain at the wrist. General Extremety ED: Negative for edema General Extremity: Negative for edema Neuro oriented x3, CN's II-XII intact bilaterally, no sensory deficits noted and gait normal Sensorium / Orientation: awake, alert, oriented to person, oriented to place and oriented to time Motor Exam: strength 5/5 throughout and strength abnormal Psych mental status grossly normal Skin no rashes or lesions noted and no wounds MDM MDM MDM Narrative Medical decision making narrative: I do not appreciate any obvious fractures on x-ray. Patient will be given an Meliton wrap. Patient advised to ice the area and use ibuprofen or Tylenol for discomfort. I suspect a contusion. Radiography Diagnostic Testing: Three-view x-rays of right hand obtained interpreted by myself as no acute fractures or dislocations. She was noted to have questionable old healed fracture to the fifth metacarpal. Official result from radiology will be pending. Discharge Plan Triage Chief Complaint: Upper Extremity Injury ED Provider: Carmela Larsen Dx/Rx/DC Orders Clinical Impression: Contusion of hand, right Instructions: ED Hand Contusion Prescriptions: No Action NK Primary Care Provider: Car Singh NP Referrals: Car Singh NP, INFORMATION SECURITY CONSULTANT-C [Primary Care Provider] - 1 Week Disposition Disposition: Home, Self Care
--- NOTE | 2021-12-30 07:55 | RAD_ITS ---
HISTORY: injury. TECHNIQUE: XR Hand Min 3 Views. COMPARISON: 12/05/2021. FINDINGS: BONES : No acute fracture identified. Mineralization unremarkable. Old fifth metacarpal neck fracture. JOINTS: No dislocation. Joint spaces maintained. 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 RAD/Hand Min 3 Views IMPRESSION: No acute fracture or dislocation identified in the right hand. Electronically Signed: Jina Matson MD at 8:13 EDT ,
== END 2021-12-30 08:16 | disposition home or self-care (01) ==
PROVIDERS: Emergency Provider Emergency Medicine; PCP Nurse Practitioner; Visit Provider Emergency Medicine
DX: S60.221A Contusion of right hand, initial encounter (principal); X58.XXXA Exposure to other specified factors, initial encounter
CPT/HCPCS: 73130; 99282

== ENCOUNTER 2022-04-30 00:01 | Emergency (ER) | payer MEDICAID, SELFPAY ==
[2022-04-30 00:02] VITALS: BP 134/77; PULSE 88; RESP 16; TEMP 37.1; O2SAT 100; BMI 35.5
--- NOTE | 2022-04-30 00:17 | EDS_ITS ---
HPI History of Present Illness Chief Complaint: Upper Extremity Injury Informant: patient Onset/Context/Timing Onset: Yesterday (around 24 hrs ago) Context: Gradual Onset Timing: Continuous Current Severity: Moderate Maximum Severity: Moderate Worsened by: moving R wrist Relieved by: remaining still Associated Symptoms Associated Symptoms: Negative for Parasthesia, Weakness or Loss of Funtion Narrative Narrative: Patient states she was working on a car yesterday, she was trying to turn a bolt and felt something pop in her right wrist, she had delayed onset of pain and swelling that has gotten worse. Hurts to move especially supinate/pronate. No numbness or tingling or weakness, but it does hurt also to extend her fingers out. The entire wrist hurts and is swollen. [id number]. PFSH PFS Medical History Abrasion of right leg Bipolar disorder Depressed Mild dehydration Other tear of lateral meniscus, current injury, right knee, subsequent encounter Other tear of medial meniscus, current injury, right knee, initial encounter (09/19/16) Sprain of anterior cruciate ligament of right knee, initial encounter (08/16/16) Sprain of anterior cruciate ligament of right knee, subsequent encounter Home Medications NK 11/14/21 [History Last Taken Unknown] Allergy/AdvReac Type Severity Reaction Status Date / Time morphine Allergy Anaphylaxis Verified 04/30/22 00:02 Family History Other CVA (cerebral vascular accident) Hypertension Lymph node cancer Myocardial infarction Surgical History CEOT removed from jaw right knee ACL Social History current occupational status: employed Smoking Status: Never smoker ROS ROS ED Constitutional Constitutional ED: Denies chills or fever(s) Musculoskeletal Musculoskeletal: Reports extremity pain; Denies neck pain Integumentary Denies Abrasions, rash or wounds Neurologic Neurologic: Denies paresthesias or weakness EXAM Physical Exam Const Vital Signs: 04/30/22 00:02 Temperature 98.7 F Temperature Source Temporal Pulse Rate 88 Respiratory Rate 16 Blood Pressure 134/77 H Blood Pressure Mean 96 Pulse Ox 100 Oxygen Delivery Method Room Air Positive well nourished and well developed General Appearance ED: well developed and NAD Neck full ROM and supple Back/Spine normal ROM and normal to inspection Extremity Extremity Narrative: Mild diffuse swelling right dorsal wrist without signs of skin infection/injury, no deformities. Tender throughout the wrist/carpus throughout. Tender on the distal radius and ulna as well as the ligaments distal to that. Limited range of motion, she does not want to move it at all but she is able to in short arc. Same with fingers, she is able to extend them all but very limited effort due to the pain at the wrist. Nontender proximal to the wrist throughout the forearm and elbow with full range of motion there except limited pronation and supination due to pain at the wrist. Neuro oriented x3, no focal motor deficits and no sensory deficits noted Sensorium / Orientation: alert Psych mental status grossly normal and thought process normal Skin no wounds Rashes: no rashes MDM MDM MDM Narrative Medical decision making narrative: X-rays of the right wrist were obtained, 3 views on my interpretation are normal/negative for nothing acute. No sign of any carpal bone dislocation or fracture. Reassured this is likely a ligament sprain within the wrist itself somewhere, but she has diffuse symptoms that would be difficult to pin it down to a single 1. Placed in a cock up Velcro wrist splint prefabricated, along with a dose of anti-inflammatories and instructions for supportive care follow- up if not improving within 1 or 2 weeks. Discharge Plan Triage Chief Complaint: Upper Extremity Injury ED Provider: Johann Ovalle Dx/Rx/DC Orders Clinical Impression: Sprain of right wrist Instructions: ED Wrist Sprain Prescriptions: No Action NK Primary Care Provider: Car Singh NP Referrals: Chau Quiroga MD [Med Staff - Active Staff] - (1-2 weeks if not improving) Car Singh NP, ELECTRIC MOTOR CONTROL ASSEMBLER-C [Primary Care Provider] - Activity Restrictions/Additional Instructions: Take daily anti-inflammatory such as ibuprofen or Aleve Disposition Disposition: Home, Self Care
--- NOTE | 2022-04-30 00:17 | RAD_ITS ---
EXAM: XR RIGHT WRIST COMPLETE, 3 OR MORE VIEWS CLINICAL INDICATION: pain/injury TECHNIQUE: Frontal, lateral and oblique views of the right wrist. This report was created using [employer] report generation technology. COMPARISON: None. FINDINGS: BONES/JOINTS: Unremarkable. No acute fracture. No subluxation. Normal alignment. Preservation of the joint space. No sclerotic or destructive changes observed. SOFT TISSUES: Diffuse soft tissue swelling about the wrist. No soft tissue swelling or gas. No radiopaque foreign body. RAD/Wrist min 3 Views IMPRESSION: No acute or healing fracture or malalignment. Electronically Signed: Tate Vasquez MD at 0:35 EST ,
[2022-04-30] MEDS: Naproxen 250 MG Tablet 500 MG PO (00:53)
== END 2022-04-30 00:54 | disposition home or self-care (01) ==
PROVIDERS: Emergency Provider Emergency Medicine; PCP Nurse Practitioner; Visit Provider Emergency Medicine
DX: S63.521A Sprain of radiocarpal joint of right wrist, initial encounter (principal); X58.XXXA Exposure to other specified factors, initial encounter; Y93.89 Activity, other specified
CPT/HCPCS: 73110; 99283

== ENCOUNTER 2022-05-27 12:23 | Emergency (ER) | payer MEDICAID, SELFPAY ==
[2022-05-27 12:24] VITALS: BP 148/79; PULSE 112; RESP 18; TEMP 36.8; O2SAT 99; BMI 35.3
--- NOTE | 2022-05-27 12:42 | EX.ED.DYSGE1 ---
HPI History of Present Illness Chief Complaint: General Illness Informant: patient Onset/Context/Timing Onset: Weeks (1) Context: Gradual Onset Timing: Continuous Narrative Narrative: 1 week of upper respiratory tract infection symptoms, no known sick contacts, has not had COVID vaccines at all, has not had influenza vaccine this year. No recent travel out of the area. She has cough and gag her self and vomited twice in the last day or 2, she states she has myalgias, headache, sore throat, as well as a cough and she feels like she is a little short of breath because of all the nasal congestion but is not having any wheezing or chest symptoms other than coughing up some occasional phlegm. No blood. No fevers or chills. PFSH [facility] Medical History Abrasion of right leg Bipolar disorder Depressed Mild dehydration Other tear of lateral meniscus, current injury, right knee, subsequent encounter Other tear of medial meniscus, current injury, right knee, initial encounter (09/19/16) Sprain of anterior cruciate ligament of right knee, initial encounter (08/16/16) Sprain of anterior cruciate ligament of right knee, subsequent encounter Home Medications NK 11/14/21 [History Last Taken Unknown] Allergy/AdvReac Type Severity Reaction Status Date / Time morphine Allergy Anaphylaxis Verified 04/30/22 00:02 Family History Other CVA (cerebral vascular accident) Hypertension Lymph node cancer Myocardial infarction Surgical History CEOT removed from jaw right knee ACL Social History current occupational status: employed Smoking Status: Never smoker ROS ROS ED Constitutional Constitutional ED: Reports body ache(s) and malaise; Denies chills or fever(s) ENT ENT ED: Reports ear pain bilateral, nasal congestion, rhinorrhea and sore throat Cardiovascular Cardiovascular: Denies chest pain or palpitations Respiratory/Chest Respiratory/Chest: Reports cough and sputum; Denies dyspnea Gastrointestinal Gastrointestinal: Reports vomiting; Denies abdominal pain, diarrhea or nausea Genitourinary Genitourinary ED: Denies dysuria or hematuria Musculoskeletal Musculoskeletal: Reports myalgias; Denies arthralgias, back pain or neck pain Integumentary Denies abscess or rash Neurologic Neurologic: Reports headache(s); Denies paresthesias or weakness Psychiatric Psychiatric: Denies depression or suicidal thoughts Endocrine Endocrinology: Denies polydipsia or polyuria EXAM Physical Exam Const Vital Signs: 05/27/22 12:24 Temperature 98.3 F Temperature Source Temporal Pulse Rate 112 H Respiratory Rate 18 Blood Pressure 148/79 H Blood Pressure Mean 102 Pulse Ox 99 Oxygen Delivery Method Room Air Positive well nourished, well developed and obese General Appearance ED: well developed and NAD Nutritional Appearance: obese HEENT Reports moist mucous membranes HEENT Narrative: Normal symmetric tonsils no trismus normal tongue. No exudates or petechia or significant erythema. TMs normal bilaterally. EAC normal bilaterally. Bilateral nasal turbinate edema without purulent discharge. No significant sinus tenderness. normocephalic and atraumatic Throat: Negative for posterior oropharynx abnormal Eyes PERRL and EOMs intact bilaterally Neck no lymphadenopathy, supple and no meningeal signs Resp normal respiratory effort and clear to auscultation bilaterally Cardio no murmurs Rate: regular rate Rhythm: regular rhythm GI normal to inspection, nondistended, normoactive bowel sounds and non-tender Extremity normal to inspection Neuro oriented x3, CN's II-XII intact bilaterally and no sensory deficits noted Sensorium / Orientation: alert Motor Exam: strength 5/5 throughout Psych mental status grossly normal Skin no rashes or lesions noted, no wounds and skin turgor normal Lesions: no lesions Rashes: no rashes MDM MDM MDM Narrative Medical decision making narrative: COVID and influenza swabs were sent and are negative. Given that she is a week out this does not necessarily rule out these completely given her sensitivities, however if she had one of them it would not change the treatment now which is basically supportive care. I recommend nasal decongestant sprays for her nasal congestion, I do not think there is any indication for antibiotics here this does not appear to be a case of bacterial sinusitis. Supportive care advised. Discharge Plan Triage Chief Complaint: General Illness ED Provider: Johann Ovalle Dx/Rx/DC Orders Clinical Impression: Acute viral syndrome Instructions: ED Viral Syndrome (Adult) Prescriptions: No Action NK Primary Care Provider: Care Physician,No Primary Referrals: Singh,Car VOCATIONAL PLACEMENT SPECIALIST, VOCATIONAL PLACEMENT SPECIALIST-C [Non-Staff] - 1 Week if not improving Activity Restrictions/Additional Instructions: Use nasal spray containing oxymetazoline or phenylephrine for decongestant purposes, do not use more than 3 days in a row. In addition, you may use the equivalent of DayQuil and/or NyQuil, and ibuprofen as needed for headaches and body aches. Disposition Disposition: Home, Self Care
== END 2022-05-27 13:56 | disposition home or self-care (01) ==
PROVIDERS: Emergency Provider Emergency Medicine; Visit Provider Emergency Medicine
DX: B34.9 Viral infection, unspecified (principal); E66.9 Obesity, unspecified
CPT/HCPCS: 87428; 99282

== ENCOUNTER 2022-06-28 10:45 | Emergency (ER) | payer MEDICAID, SELFPAY ==
[2022-06-28 10:46] VITALS: BP 108/85; PULSE 71; RESP 14; TEMP 36.6; O2SAT 99; BMI 34.9
--- NOTE | 2022-06-28 11:03 | RAD_ITS ---
STUDY: X-RAY CHEST REASON FOR EXAM: Female, 21 years old. CP FOR A COUPLE OF DAYS, SOB, DIZZY. TECHNIQUE: PA and lateral views of the chest. COMPARISON: Comparison is made with prior study dated May 30, 2021. FINDINGS: The lungs are clear and expanded. There is no demonstrated pleural abnormality. Normal size heart. Normal mediastinum and kody. Normal visualized pulmonary arteries. Normal visualized aortic arch and descending thoracic aorta. Normal visualized thoracic spine. Normal visualized ribs, clavicles, and shoulders. There is no demonstrated abnormality of the visualized soft tissue structures of the upper abdomen. RAD/Chest PA and Lateral IMPRESSION: Normal x-ray examination of the chest. Electronically Signed: Magdi Walker MD at 12:01 EST ,
--- NOTE | 2022-06-28 11:07 | EX.ED.DYSGE1 ---
HPI History of Present Illness Chief Complaint: Chest Pain Narrative Narrative: Patient presents with chest pain for the past few weeks its mostly just in the morning. She had bronchitis about few weeks ago and the pain started after that. Cough has subsided, she has no lower extremity edema or calf pain. She is denying any pleuritic component. No fevers or chills. She sometimes feel her heart pounding hard but not necessarily fast. [facility] Medical History Abrasion of right leg Bipolar disorder Depressed Mild dehydration Other tear of lateral meniscus, current injury, right knee, subsequent encounter Other tear of medial meniscus, current injury, right knee, initial encounter (09/19/16) Sprain of anterior cruciate ligament of right knee, initial encounter (08/16/16) Sprain of anterior cruciate ligament of right knee, subsequent encounter Home Medications naproxen 500 mg tablet (Naprosyn) 500 mg PO BID PRN pain #20 tabs 06/28/22 [Rx Last Taken Unknown] Allergy/AdvReac Type Severity Reaction Status Date / Time morphine Allergy Anaphylaxis Verified 04/30/22 00:02 Family History Other CVA (cerebral vascular accident) Hypertension Lymph node cancer Myocardial infarction Surgical History CEOT removed from jaw right knee ACL Social History current occupational status: employed Smoking Status: Never smoker ROS ROS ED ROS Narrative Past medical history: Reviewed Medications: Reviewed Social history: Noncontributory Review of systems: All systems negative except as indicated General: No fever Eyes: No visual changes ENT: No upper airway congestion, normal voice Neck: No neck pain Cardiovascular: As in HPI Respiratory: No current dyspnea, cough has subsided Gastrointestinal: No abdominal pain, nausea vomiting or diarrhea Genitourinary: No dysuria Musculoskeletal: Denies myalgias no difficulty with ambulation Skin: No rash EXAM Physical Exam Narrative Exam Narrative: Physical exam General: Well nourished, Well developed, No Acute Distress Head: Normocephalic, Atraumatic Eyes: Conjunctiva not pale ENT: Moist mucous membranes Neck: Supple, Nontender, No lymphadenopathy Cardiovascular: Regular rate, Regular rhythm Respiratory: No distress, CTA bilaterally Abdomen: Soft, Nontender, Nondistended Back: Nontender, Normal Inspection. Negative for: CVA tenderness Extremities: Nontender, No edema Skin: Normal color, No rash Neurological: Alert, Normal Strength, Normal Sensation Psychological: Normal affect Const Vital Signs: 06/28/22 10:46 Temperature 98 F Temperature Source Temporal Pulse Rate 71 Respiratory Rate 14 Blood Pressure 108/85 H Blood Pressure Mean 92 Pulse Ox 99 Oxygen Delivery Method Room Air MDM MDM Radiography Diagnostic Testing: Patient has a normal x-ray and EKG. There may be some pleurisy or chest wall involvement, otherwise work-up is normal, I thought about PE however PERC score is negative. I do not believe we have to pursue this. There is no ischemic changes on EKG I do not believe we have to do blood work or troponin or CBC or basic metabolic panel. I reassured her, I will put her on NSAIDs and she is discharged in stable condition if anything changes she is to return. Chest x-ray two-view interpreted by me as normal. EKG Initial EKG: Comments: Sinus rhythm with a rate of 60. Normal UT and QTc intervals. No ischemic changes. There is some slight sinus arrhythmia otherwise normal EKG. It is unchanged from March 01, 2021. Interpreted by emergency doctor Discharge Plan Triage Chief Complaint: Chest Pain ED Provider: Branden Astorga Dx/Rx/DC Orders Clinical Impression: Chest pain, Bronchitis Instructions: ED Chest Pain, Uncertain Cause Prescriptions: New naproxen [Naprosyn] 500 mg tablet 500 mg PO BID PRN (Reason: pain) Qty: 20 0RF Primary Care Provider: Care Physician,No Primary Referrals: Care Physician,No Primary [Primary Care Provider] - Disposition Disposition: Home, Self Care
== END 2022-06-28 11:51 | disposition home or self-care (01) ==
PROVIDERS: Emergency Provider Emergency Medicine; Visit Provider Emergency Medicine
DX: R07.9 Chest pain, unspecified (principal); J40 Bronchitis, not specified as acute or chronic
CPT/HCPCS: 71046; 93005; 99282

== ENCOUNTER 2022-07-24 21:35 | Emergency (ER) | payer MEDICAID, SELFPAY ==
[2022-07-24 21:36] VITALS: BP 124/99; PULSE 65; RESP 16; TEMP 36.5; O2SAT 95; BMI 34.8
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
[2022-07-24 22:08] VITALS: O2SAT 98
== END 2022-07-24 22:10 | disposition home or self-care (01) ==
LOC: ED 22:04
PROVIDERS: Emergency Provider Emergency Medicine; Visit Provider Emergency Medicine
DX: J20.9 Acute bronchitis, unspecified (principal); E66.9 Obesity, unspecified
CPT/HCPCS: 99282

== ENCOUNTER 2022-08-15 11:50 | Emergency (ER) | payer MEDICAID, SELFPAY ==
[2022-08-15 11:51] VITALS: BP 118/78; PULSE 78; RESP 16; TEMP 36.6; O2SAT 100; BMI 34.9
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
== END 2022-08-15 12:42 | disposition home or self-care (01) ==
PROVIDERS: Emergency Provider Emergency Medicine; Visit Provider Emergency Medicine
DX: T23.231A Burn of second degree of multiple right fingers (nail), not including thumb, initial encounter (principal); E66.9 Obesity, unspecified; X58.XXXA Exposure to other specified factors, initial encounter
CPT/HCPCS: 99283

== ENCOUNTER 2022-09-03 12:03 | Emergency (ER) | payer MEDICAID, SELFPAY ==
[2022-09-03 12:04] VITALS: BP 113/75; PULSE 79; RESP 16; TEMP 36.4; O2SAT 99; BMI 34.7
--- NOTE | 2022-09-03 12:19 | RAD_ITS ---
STUDY: X-RAY CHEST REASON FOR EXAM: Female, 21 years old. Chest pain TECHNIQUE: Single AP portable view of the chest. COMPARISON: Comparison is made with prior study June 28, 2022. FINDINGS: EKG electrodes are seen. The lungs are clear and expanded. There is no demonstrated pleural abnormality. Normal size heart. Normal mediastinum and kody. Normal visualized pulmonary arteries. Normal visualized aortic arch and descending thoracic aorta. Normal visualized thoracic spine. Normal visualized ribs, clavicles, and shoulders. There is no demonstrated abnormality of the visualized soft tissue structures of the upper abdomen. RAD/Chest 1 View (Portable) IMPRESSION: Normal x-ray examination of the chest. Electronically Signed: Magdi Walker MD at 13:07 EDT ,
--- NOTE | 2022-09-03 12:19 | EKG12_ITS ---
Test Reason : DIZZINESS Blood Pressure : / mmHG Vent. Rate : 068 BPM Atrial Rate : 068 BPM P-R Int : 156 ms QRS Dur : 090 ms QT Int : 380 ms P-R-T Axes : 035 041 043 degrees QTc Int : 404 ms Normal sinus rhythm with sinus arrhythmia Normal ECG Confirmed by HO JON, IRVIN ([id number]), school photograph editor CASSIE BERNSTEIN ([id number]) on 09/04/2022 9:48:15 AM Referred By: NOELLE Confirmed By:IRVIN TEAGUE MD
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
[2022-09-03 12:48] LABS: Absolute Lymphocyte Count 2.63 X10^3/uL (0.83-4.51); Absolute Neutrophil Count 5.1 X10^3/uL (2.0-7.7); Basophil# 0.06 X10^3/uL; Basophil% 0.7 % (0-1); Eosinophil# 0.74 X10^3/uL; Hematocrit 41.9 % (37-47); Hemoglobin 13.8 g/dL (12.0-15.0); Lymphocyte # 2.63 X10^3/ul (0.83-4.51); Lymphocyte % 28.5 % (19-41); Mean Corp Hgb Conc 32.9 g/dL (32-36); Mean Corpuscular Hgb 28.8 pg (27.0-32.0); Mean Corpuscular Volume 87.5 fL (81-99); Mean Platelet Vol. 10.7 fl (6.2-12.0); Monocyte# 0.66 X10^3/uL; Monocyte% 7.2 % (0-10); NRBC Flagged by Analyzer 0 % (0-5); Neutrophil # 5.07 X10^3/uL (2.7-7.7); Neutrophil % 54.9 % (47-70); Platelet Count 376 K/mm3 (150-450); RBC Distribution Width CV 12.6 % (11.6-14.6); RBC Distribution Width SD 40.1 fl (35.1-43.9); Red Blood Count 4.79 M/mm3 (4.2-5.4); White Blood Count 9.2 K/mm3 (4.4-11.0)
[2022-09-03 13:05] LABS: Anion Gap 6 (5-15); BUN 10 mg/dL (7-18); BUN/Creat Ratio 14.9 RATIO (10-20); Calcium,Total 9.3 mg/dL (8.5-10.1); Chloride 107 mmol/L (98-107); Creatinine, Serum 0.67 mg/dL (0.55-1.02); EST Glomerular Filtration Rate 118 mL/min (>60); Est Glom Filt Rate - Afr Amer 142 mL/min (>60); Estimated Creatinine Clearance 125.39 ml/min; Glucose 92 mg/dL (74-106); Sodium Level 138 mmol/L (136-145); Troponin-I HS < 3 pg/mL (3.0-54.0)
== END 2022-09-03 13:59 | disposition home or self-care (01) ==
PROVIDERS: Emergency Provider Emergency Medicine; Visit Provider Emergency Medicine
DX: R55 Syncope and collapse (principal)
CPT/HCPCS: 71045; 80048; 84484; 85025; 93005; 99284; A4216

== ENCOUNTER 2022-09-20 05:12 | Emergency (ER) | payer MEDICAID, SELFPAY ==
[2022-09-20 05:13] VITALS: BP 136/77; PULSE 66; RESP 17; TEMP 36.4; O2SAT 97; BMI 35.2
--- NOTE | 2022-09-20 05:20 | EDS_ITS ---
HPI History of Present Illness Chief Complaint: Back Narrative Narrative: 22-year-old female states that she was at work today, lifted a 10 pound box, and felt a pop in her mid back. She now has pain mainly in her mid thoracic back to right rhomboid area. Pain is worse with movement and more constant since her injury. She denies loss of bowel or bladder, or any other injury. She states she does not want to claim this as a Worker's Comp. claim. She was able to drive to the emergency department for evaluation. [facility] Medical History Abrasion of right leg Bipolar disorder Depressed Mild dehydration Other tear of lateral meniscus, current injury, right knee, subsequent encounter Other tear of medial meniscus, current injury, right knee, initial encounter (09/19/16) Sprain of anterior cruciate ligament of right knee, initial encounter (08/16/16) Sprain of anterior cruciate ligament of right knee, subsequent encounter Home Medications cyclobenzaprine 10 mg tablet 10 mg PO TID PRN Muscle Spasm #20 TABLETS 09/20/22 [Rx Last Taken Unknown] ibuprofen 800 mg tablet 800 mg PO Q8H PRN pain #20 tabs 09/20/22 [Rx Last Taken Unknown] Allergy/AdvReac Type Severity Reaction Status Date / Time morphine Allergy Anaphylaxis Verified 09/20/22 05:16 Family History Other CVA (cerebral vascular accident) Hypertension Lymph node cancer Myocardial infarction Surgical History CEOT removed from jaw right knee ACL Social History current occupational status: employed Smoking Status: Never smoker ROS ROS ED ROS Narrative Constitutional: No fever, no chills. HEENT: No sore throat. No neck pain. No loss of vision. No rhinorrhea. Cardiovascular: No chest pain. No palpitations. No pedal edema. Respiratory: No cough, no shortness of breath. Abdominal: No abdominal pain. No nausea. No vomiting. Genitourinary: No dysuria. No hematuria. Musculoskeletal: No myalgias. No arthralgias. Midthoracic midline to right- sided pain. Neurologic: No headaches. No dizziness. No lightheadedness. Skin: No rash. No change in color. Psychiatric: No depression. No anxiety. EXAM Physical Exam Narrative Exam Narrative: Afebrile. Vital signs noted. HEENT: Normocephalic. Atraumatic. PERRL, EOMI. Neck soft and supple. No point tenderness or step off. Cardiovascular: Regular rate and rhythm. No murmurs, rubs, or gallops appreciated. Respiratory: No tachypnea. Lungs clear to auscultation bilaterally. Gastrointestinal: Abdomen soft, nontender, with normoactive bowel sounds. No rebound or guarding. Neurological: Awake. Alert. Nonfocal, nonlateralizing. Skin: No rash. Normal color. No pallor. Musculoskeletal: No pedal edema. Full range of motion extremities. No vertebral point tenderness or bony step-off of thoracic spine. Mild tenderness to palpation paraspinal musculature and around right rhomboid area. Const Vital Signs: 09/20/22 05:13 Temperature 97.6 F L Temperature Source Temporal Pulse Rate 66 Respiratory Rate 17 Blood Pressure 136/77 H Blood Pressure Mean 96 Pulse Ox 97 Oxygen Delivery Method Room Air MDM MDM MDM Narrative Medical decision making narrative: Patient has mainly thoracic spine pain. I do feel it is probably more muscular in nature as it is more in the paraspinal area. I told her it was difficult to have a compression fracture secondary to the vertebrae being attached to the ribs. I am unable to give her a muscle relaxer here as she drove here. She was given ibuprofen 800 mg and an ice pack. X-rays will be obtained of the thoracic spine. I am not concerned for cauda equina because her pain is too high along with her injury. I do not feel narcotic pain medication is indicated. Once again, she stated that she did not want to make a Worker's Comp. claim. I reviewed and interpreted her thoracic spine x-rays independently and see no evidence of an acute fracture. I reviewed the radiology report which confirms my independent interpretation of no fracture, no spondylolisthesis. At this point in time, I feel she can be discharged safely home with follow-up to her primary care provider. She was written prescription for ibuprofen 800 mg #20, and for Flexeril No. 20 to take as needed for muscle spasms. She was also given a note to be off work today. I do not feel that she requires any laboratory work, and I do not feel that she requires observation. Return instructions to the emergency department were reviewed. Disposition is discharged home in stable condition. Radiography Diagnostic Testing: Clinical Impression(s) from Imaging Studies Thoracic Spine X-Ray 09/20/22 05:20 IMPRESSION: No evidence of thoracic spinal fracture or spondylolisthesis. Electronically Signed: Doni Corbin MD at 5:54 EDT , Discharge Plan Triage Chief Complaint: Back ED Provider: Edwin Traylor Dx/Rx/DC Orders Clinical Impression: Strain of thoracic back region, Back pain Instructions: ED Back Pain (Acute or Chronic), ED Thoracic Spine Strain Prescriptions: New ibuprofen 800 mg tablet 800 mg PO Q8H PRN (Reason: pain) Qty: 20 0RF cyclobenzaprine 10 mg tablet 10 mg PO TID PRN (Reason: Muscle Spasm) Qty: 20 0RF Stand Alone Forms: ED Work / School Excuse Primary Care Provider: Care Physician,No Primary Referrals: Care Physician,No Primary [Primary Care Provider] - Disposition Disposition: Home, Self Care
--- NOTE | 2022-09-20 05:20 | RAD_ITS ---
EXAM: XR THORACIC SPINE, 3 VIEWS CLINICAL INDICATION: trauma TECHNIQUE: Frontal, lateral and swimmer''s views of the thoracic spine. COMPARISON: No relevant prior studies available. FINDINGS: VERTEBRAE: Unremarkable. Preserved vertebral body height. No fracture. No spondylolisthesis. Preservation of the normal thoracic kyphosis. No significant facet arthropathy. DISC SPACES: Unremarkable. Disc spaces are maintained. RAD/Thoracic Spine 3 Views IMPRESSION: No evidence of thoracic spinal fracture or spondylolisthesis. Electronically Signed: Doni Corbin MD at 5:54 EDT ,
--- NOTE | 2022-09-20 05:22 | ED.RN ---
Pt states injury occurred while at work but denies wanting to fill out FROI. RN explained risk/benefits of workers comp, pt verbalized understanding.
[2022-09-20] MEDS: Ibuprofen 400 MG Tablet 800 MG PO (05:45)
== END 2022-09-20 06:10 | disposition home or self-care (01) ==
PROVIDERS: Emergency Provider Emergency Medicine; Visit Provider Emergency Medicine
DX: S29.012A Strain of muscle and tendon of back wall of thorax, initial encounter (principal); X50.0XXA Overexertion from strenuous movement or load, initial encounter
CPT/HCPCS: 72072; 99283

== ENCOUNTER 2022-11-07 18:22 | Emergency (ER) | payer MEDICAID, SELFPAY ==
[2022-11-07 18:23] VITALS: BP 125/64; PULSE 74; RESP 17; TEMP 36.6; O2SAT 99; BMI 35.5
--- NOTE | 2022-11-07 19:02 | ED.VIS.BACK ---
HPI History of Present Illness Chief Complaint: Back Informant: patient Onset/Context/Timing Onset: Days (5 days) Context: Gradual Onset Narrative Narrative: Patient presents with 5-day history of back pain. She states she went fishing last Saturday and her back was tight. She leaned over a drainage pipe to try to pop her back and has had increased pain and spasms since that time. Pain does not radiate to her legs. Last night at work she picked up a heavy basket and has had increased pain. No problems of bowel or bladder control. No prior back injuries or injections. [facility] Medical History Abrasion of right leg Bipolar disorder Depressed Mild dehydration Other tear of lateral meniscus, current injury, right knee, subsequent encounter Other tear of medial meniscus, current injury, right knee, initial encounter (09/19/16) Sprain of anterior cruciate ligament of right knee, initial encounter (08/16/16) Sprain of anterior cruciate ligament of right knee, subsequent encounter Home Medications cyclobenzaprine 10 mg tablet 10 mg PO TID PRN Muscle Spasm #10 TABLETS 11/07/22 [Rx Last Taken Unknown] hydrocodone-acetaminophen 5-325mg 5mg-325mg 1 tab PO Q6H PRN PRN Pain 3 days #10 TABLETS 11/07/22 [Rx Last Taken Unknown] Allergy/AdvReac Type Severity Reaction Status Date / Time morphine Allergy Anaphylaxis Verified 11/07/22 18:23 Family History Other CVA (cerebral vascular accident) Hypertension Lymph node cancer Myocardial infarction Surgical History CEOT removed from jaw right knee ACL Social History current occupational status: employed Smoking Status: Never smoker ROS ROS ED Constitutional Constitutional ED: Denies chills or fever(s) Eyes Eyes: Denies change in vision or discharge from eye(s) ENT ENT ED: Denies discharge from eye(s), rhinorrhea or sore throat Cardiovascular Cardiovascular: Denies chest pain Respiratory/Chest Respiratory/Chest: Denies cough or dyspnea Gastrointestinal Gastrointestinal: Denies abdominal pain, nausea or vomiting Genitourinary Genitourinary ED: Denies dysuria Musculoskeletal Musculoskeletal: Reports back pain; Denies extremity pain or neck pain Integumentary Denies Abrasions or rash Neurologic Neurologic: Denies headache(s) or weakness Psychiatric Psychiatric: Denies anxiety or depression Allergic/Immunologic Allergic/Immunologic ED: Denies lip swelling or urticaria EXAM Physical Exam Const Vital Signs: 11/07/22 18:23 Temperature 97.9 F Temperature Source Temporal Pulse Rate 74 Respiratory Rate 17 Blood Pressure 125/64 H Blood Pressure Mean 84 Pulse Ox 99 Oxygen Delivery Method Room Air Positive well nourished and well developed General Appearance ED: well developed HEENT Reports moist mucous membranes Eyes PERRL and EOMs intact bilaterally Resp normal respiratory effort and clear to auscultation bilaterally Cardio regular rate and regular rhythm GI normal to inspection, nondistended, normoactive bowel sounds Back/Spine Back/Spine Narrative: No midline tenderness. Reproducible tenderness in the left lower thoracic and upper lumbar paraspinal muscles. No skin changes. Extremity normal to inspection Neuro oriented x3 and no sensory deficits noted Motor Exam: strength 5/5 throughout Psych mental status grossly normal Skin no rashes or lesions noted MDM MDM MDM Narrative Medical decision making narrative: Patient has reproducible musculoskeletal pain. With no direct trauma I do not feel that imaging is needed at this time. Patient has been taking naproxen and will continue to do this. I will write her a short course of B[place] and Flexeril. I did review her OARRS report and she has not had any prescriptions. Patient did drive herself to the emergency room so therefore will be given a Lidoderm patch tonight and she can hop picker prescriptions from the pharmacy. Discharge Plan Triage Chief Complaint: Back ED Provider: Jaja Matute Dx/Rx/DC Orders Clinical Impression: Strain of lumbar paraspinal muscle Instructions: ED Back Pain (Acute or Chronic) Prescriptions: New hydrocodone-acetaminophen 5-325 mg tablet 1 tab PO Q6H PRN PRN (Reason: Pain) 3 Days Qty: 10 0RF cyclobenzaprine 10 mg tablet 10 mg PO TID PRN (Reason: Muscle Spasm) Qty: 10 0RF Primary Care Provider: Care Physician,No Primary Referrals: Garrison Avelar MD [Med Staff - Radiographer Mammographer] - As Needed Care Physician,No Primary [Primary Care Provider] - Disposition Disposition: Home, Self Care
[2022-11-07] MEDS: Lidocaine 5% Patch 1 PATCH TOPICAL (19:16)
[2022-11-07 19:18] VITALS: PULSE 74; RESP 16; O2SAT 98
== END 2022-11-07 19:18 | disposition home or self-care (01) ==
PROVIDERS: Emergency Provider Emergency Medicine; Visit Provider Emergency Medicine
DX: S39.012A Strain of muscle, fascia and tendon of lower back, initial encounter (principal); X58.XXXA Exposure to other specified factors, initial encounter
CPT/HCPCS: 99282

== ENCOUNTER 2022-12-02 05:52 | Emergency (ER) | payer BC, MEDICAID, SELFPAY ==
[2022-12-02 05:53] VITALS: BP 128/76; PULSE 104; RESP 18; TEMP 35.9; O2SAT 98; BMI 35.2
--- NOTE | 2022-12-02 07:06 | EDS_ITS ---
HPI History of Present Illness Chief Complaint: Cold Sx Informant: patient Narrative Narrative: Patient is a 22-year-old female with no significant past medical history. She states for the past 2 to 3 days she has had mild nasal congestion and drainage and sore throat. She denies any known sick contacts she denies any fevers chills nausea vomiting diarrhea or dysuria. She states that she has had COVID in the past and that she is worried that the sore throat is the start of a second COVID infection. Secondary to this she presents for evaluation [facility] Medical History Abrasion of right leg Bipolar disorder Depressed Mild dehydration Other tear of lateral meniscus, current injury, right knee, subsequent encounter Other tear of medial meniscus, current injury, right knee, initial encounter (09/19/16) Sprain of anterior cruciate ligament of right knee, initial encounter (08/16/16) Sprain of anterior cruciate ligament of right knee, subsequent encounter Home Medications azelastine 137 mcg (0.1 %) nasal spray aerosol 2 spray intranasal BID #30 mL 12/02/22 [Rx Last Taken Unknown] prednisone 20 mg tablet 40 mg (2 x 20 mg) PO DAILY 5 days #10 tabs 12/02/22 [Rx Last Taken Unknown] Allergy/AdvReac Type Severity Reaction Status Date / Time morphine Allergy Anaphylaxis Verified 12/02/22 05:52 Family History Other CVA (cerebral vascular accident) Hypertension Lymph node cancer Myocardial infarction Surgical History CEOT removed from jaw right knee ACL Social History current occupational status: employed Smoking Status: Never smoker ROS ROS ED Constitutional Constitutional ED: Denies chills or fever(s) ENT ENT ED: Reports rhinorrhea and sore throat; Denies ear pain Cardiovascular Cardiovascular: Denies chest pain Respiratory/Chest Respiratory/Chest: Reports cough; Denies dyspnea Gastrointestinal Gastrointestinal: Denies abdominal pain, diarrhea, nausea or vomiting Genitourinary Genitourinary ED: Denies dysuria Musculoskeletal Musculoskeletal: Denies myalgias Integumentary Denies rash Neurologic Neurologic: Denies headache(s) Hematologic/Lymphatic Hematologic/Lymphatic: Denies easy bleeding or easy bruising EXAM Physical Exam Const Vital Signs: 12/02/22 05:53 12/02/22 05:56 Temperature 96.6 F L Temperature Source Temporal Pulse Rate 104 H Respiratory Rate 18 Respiratory Pattern Normal Blood Pressure 128/76 H Blood Pressure Mean 93 Pulse Ox 98 Oxygen Delivery Method Room Air Positive well nourished and well developed General Appearance ED: well developed HEENT HEENT Narrative: Nasal mucosa is hyperemic and boggy Posterior pharynx displays cobblestoning consistent with sinus drainage without tonsillar hypertrophy exudates hard palate petechiae trismus change in voice or difficulty with secretions Eyes PERRL and EOMs intact bilaterally Neck supple Neck Narrative: No nuchal rigidity or meningeal signs noted Lymph Lymphatic Narrative: There is tender anterior cervical lymphadenopathy present No posterior lymph nodes noted Resp normal respiratory effort and clear to auscultation bilaterally Cardio regular rate and regular rhythm Extremity normal to inspection Neuro oriented x3, CN's II-XII intact bilaterally and no sensory deficits noted Sensorium / Orientation: alert Motor Exam: strength 5/5 throughout Psych mental status grossly normal Skin no rashes or lesions noted MDM MDM MDM Narrative Medical decision making narrative: Patient presented to the ER afebrile and in no acute distress. Constellation of symptoms is most consistent with viral upper respiratory infection but as differential also includes COVID versus strep throat versus mono I did elect to perform viral swabs. As patient had no posterior lymphadenopathy I did not feel that a Monospot test was pertinent especially as her symptoms only been present for a few days. COVID and influenza were negative and rapid strep was negative as well indicating this is viral in nature. Therefore patient can be given symptomatic care with steroids and nasal sprays to reduce congestion and inflammation and is otherwise safe for discharge as she has no airway edema or compromise or signs of respiratory distress. Discharge Plan Triage Chief Complaint: Cold Sx ED Provider: Tate Ramirez Dx/Rx/DC Orders Clinical Impression: Acute upper respiratory infection, Viral pharyngitis Instructions: ED Pharyngitis, Viral, ED URI, Viral, No Abx (Adult) Prescriptions: New prednisone 20 mg tablet 40 mg PO DAILY 5 Days Qty: 10 0RF azelastine 137 mcg (0.1 %) aerosol,spray 2 spray intranasal BID Qty: 30 0RF Rx Instructions: administer into each nostril Primary Care Provider: Care Physician,No Primary Referrals: Arian Angulo MD [Med Staff - Office Professionals] - Care Physician,No Primary [Primary Care Provider] - Activity Restrictions/Additional Instructions: Your physical exam indicates you have a viral upper respiratory tract infection and your COVID influenza and rapid strep swabs were negative as well. These types of infections will last on average 2 to 3 weeks. Treatment is symptomatic and therefore use the nasal spray and steroid as directed to help control any further congestion and inflammation and return to the ER should you have any further concerns. Disposition Disposition: Home, Self Care
== END 2022-12-02 07:39 | disposition home or self-care (01) ==
PROVIDERS: Emergency Provider Emergency Medicine; Visit Provider Emergency Medicine
DX: J06.9 Acute upper respiratory infection, unspecified (principal); B97.89 Other viral agents as the cause of diseases classified elsewhere; Z86.16 Personal history of COVID-19
CPT/HCPCS: 87428; 87880; 99282

== ENCOUNTER 2022-12-28 07:16 | Emergency (ER) | payer MEDICAID, SELFPAY ==
[2022-12-28 07:17] VITALS: BP 109/69; PULSE 53; RESP 14; TEMP 36.3; O2SAT 99; BMI 34.9
--- NOTE | 2022-12-28 07:41 | ED.VIS.BACK ---
HPI History of Present Illness Chief Complaint: Back Informant: patient Onset/Context/Timing Onset: Yesterday Context: Gradual Onset Timing: Continuous Quality: Sharp Location: Lumbar Current Severity: Moderate Maximum Severity: Moderate Worsened by: improves with Movement Relieved by: Remaining Still Associated Symptoms Associated Symptoms: Negative for Numbness, Tingling, Radiation to Right Leg, Radiation to Left Leg, Fever, Abdominal Pain, Dysuria, Unable to Ambulate, Unable to Transfer, Urinary Retention, Urinary Incontinence, Constipation or Fecal Incontinence Narrative Narrative: Female who does a lot of lifting at work. Yesterday after work she developed right lower back pain. No radiation to her legs. No fall or trauma. No fever or dysuria. She has never had back surgery. She denies any numbness or weakness in her lower extremities. Prior similar symptoms: No Recent Illness/Hospitalization: No PFSH [facility] Medical History Abrasion of right leg Bipolar disorder Depressed Mild dehydration Other tear of lateral meniscus, current injury, right knee, subsequent encounter Other tear of medial meniscus, current injury, right knee, initial encounter (09/19/16) Sprain of anterior cruciate ligament of right knee, initial encounter (08/16/16) Sprain of anterior cruciate ligament of right knee, subsequent encounter Home Medications azelastine 137 mcg (0.1 %) nasal spray aerosol 2 spray intranasal BID #30 mL 12/02/22 [Rx Last Taken Unknown] prednisone 20 mg tablet 40 mg (2 x 20 mg) PO DAILY 5 days #10 tabs 12/02/22 [Rx Last Taken Unknown] metaxalone 800 mg tablet 800 mg PO TID #21 tabs 12/28/22 [Rx Last Taken Unknown] Allergy/AdvReac Type Severity Reaction Status Date / Time morphine Allergy Anaphylaxis Verified 12/28/22 07:16 Family History Other CVA (cerebral vascular accident) Hypertension Lymph node cancer Myocardial infarction Surgical History CEOT removed from jaw right knee ACL Social History current occupational status: employed Smoking Status: Never smoker ROS ROS ED ROS Narrative His recent illness. Low back pain. Review of Systems ROS Unobtainable: Denies due to encephalopathy Constitutional Constitutional ED: Denies chills or fever(s) Eyes Eyes: Denies blurry vision ENT ENT ED: Denies ear pain Cardiovascular Cardiovascular: Denies chest pain Respiratory/Chest Respiratory/Chest: Denies dyspnea Gastrointestinal Gastrointestinal: Denies abdominal pain Genitourinary Genitourinary ED: Denies dysuria or hematuria Musculoskeletal Musculoskeletal: Reports back pain; Denies arthralgias, myalgias or neck pain Integumentary Denies abscess or Abrasions Neurologic Neurologic: Denies headache(s) Psychiatric Psychiatric: Denies anxiety Endocrine Endocrinology: Denies cold intolerance Hematologic/Lymphatic Hematologic/Lymphatic: Denies easy bleeding or easy bruising Allergic/Immunologic Allergic/Immunologic ED: Denies mouth swelling or tongue swelling EXAM Physical Exam Narrative Exam Narrative: -year-old female vital signs stable afebrile. No distress. H EENT exam unremarkable. Neck nontender no lymphadenopathy. Lungs clear to auscultation bilaterally. Heart regular rhythm rate about 60 no murmur. Chest wall nontender. Abdomen soft nontender. Moving all 4 extremities. Neurovascular intact. Normal 5-5 business development intern strength. Normal dorsi plantarflexion. Negative straight leg raise bilaterally. No cauda equina. No saddle anesthesia. Normal medial thigh sensation. Back right paralumbar soft tissue consistent with myofascial strain and spasm with tenderness. No redness or warmth. No discoloration or bruising. Spine itself is nontender. Neurologic exam normal. Normal motor strength and sensation in all extremities. Const Vital Signs: 12/28/22 07:17 Temperature 97.3 F L Temperature Source Temporal Pulse Rate 53 L Respiratory Rate 14 Blood Pressure 109/69 Blood Pressure Mean 82 Pulse Ox 99 Oxygen Delivery Method Room Air Positive well nourished and well developed; Negative for cachectic, contractures or unkempt General Appearance ED: well developed and NAD; Negative for unkempt, cachectic, contractures or pallor Nutritional Appearance: Negative for cachectic HEENT Reports moist mucous membranes Negative for trauma or tenderness Eyes PERRL and EOMs intact bilaterally General Eye ED: Negative for pale conjunctiva or scleral icterus Neck no lymphadenopathy, supple and no JVD General: Negative for tenderness Thyroid: Negative for other Resp normal respiratory effort and clear to auscultation bilaterally Effort and Inspection: Negative for pain with movement Auscultation: Negative for rales, rhonchi or wheezes Cardio regular rate, regular rhythm, S1 normal heart sound, S2 normal heart sound and no murmurs Palpation: Negative for palpable S3 Rate: Negative for bradycardia or tachycardic Rhythm: Negative for abnormal rhythm Bruits: Negative for other GI normal to inspection, nondistended, normoactive bowel sounds, soft to palpation, non-tender, non-distended and no masses Inspection: Negative for abdominal distention Palpation: Negative for tender or guarding Back/Spine normal to inspection; Negative for no thoracic nor lumbar tenderness Back/Spine Narrative: Right paralumbar soft tissue tenderness consistent with myofascial strain and paralumbar muscle spasm. No discoloration. No redness or warmth. Cervical Spine: Negative for cervical spine tenderness and Negative for paracervical muscle tenderness Thoracic Spine / Upper Back: paraspinal muscle tenderness Extremity normal to inspection General Extremety ED: Negative for edema or tenderness General Extremity: Negative for edema Neuro oriented x3 and no sensory deficits noted Sensorium / Orientation: alert; Negative for confused, lethargic or stuporous Motor Exam: strength 5/5 throughout Psych mental status grossly normal Appearance: Negative for unkempt Attitude: No agitated Mood & Affect: Negative for depressed, sad or tearful Skin no rashes or lesions noted and no wounds General Skin Exam: Negative for jaundice or pallor Lesions: No lesion noted Rashes: No rashes noted Trauma: Negative for abrasion or puncture Wounds: Negative for wounds noted Image ED - Body Diagram Man: 1. Right-sided. Lumbar soft tissue muscle spasm and tenderness. No discoloration. No bony tenderness. MDM MDM MDM Narrative Medical decision making narrative: 22-year-old female does a lot of lifting and moving of boxes etc. Complaint low back pain consistent with myofascial paralumbar soft tissue muscle strain and spasm. She be treated 1 Skelaxin here and Motrin p.o. At home Motrin and Tylenol for pain and inflammation. Hot shower warm bath. Massage. Skelaxin 3 times daily for 1 week. Duty at work. History & Record Review Discussion w/independent historian: Patient Discharge Plan Triage Chief Complaint: Back ED Provider: Frederic Holland Dx/Rx/DC Orders Clinical Impression: Back strain, Back muscle spasm Instructions: ED Muscle Spasm Prescriptions: New metaxalone 800 mg tablet 800 mg PO TID Qty: 21 0RF No Action prednisone 20 mg tablet 40 mg PO DAILY 5 Days Qty: 10 0RF azelastine 137 mcg (0.1 %) aerosol,spray 2 spray intranasal BID Qty: 30 0RF Rx Instructions: administer into each nostril Primary Care Provider: Care Physician,No Primary Referrals: Mack Arora MD [Med Staff - Postal Carrier] - 1 Week if not improving Care Physician,No Primary [Primary Care Provider] - Activity Restrictions/Additional Instructions: You have a muscle strain and spasm of your lower back. Hot shower, warm soaks, hot tub, massage. Motrin for pain and inflammation. Tylenol for pain. Skelaxin as a muscle relaxant 1 pill 3 times a day till gone. Follow-up with a doctor if not improving. Light duty at work for the next week. No lifting greater than 10 pounds. Disposition Disposition: Home, Self Care
[2022-12-28] MEDS: Ibuprofen 400 MG Tablet 800 MG PO (07:53)
[2022-12-28] MEDS: Metaxalone 800 MG Tablet PO (07:54)
== END 2022-12-28 07:57 | disposition home or self-care (01) ==
PROVIDERS: Emergency Provider Emergency Medicine; Visit Provider Emergency Medicine
DX: S39.012A Strain of muscle, fascia and tendon of lower back, initial encounter (principal); M62.830 Muscle spasm of back; X58.XXXA Exposure to other specified factors, initial encounter
CPT/HCPCS: 99282

== ENCOUNTER 2023-03-04 06:07 | Emergency (ER) | payer MEDICAID, SELFPAY ==
[2023-03-04 06:08] VITALS: BP 129/73; PULSE 101; RESP 16; TEMP 36.1; O2SAT 97; BMI 36.7
--- NOTE | 2023-03-04 06:22 | EX.ED.DYSGE1 ---
HPI History of Present Illness Chief Complaint: Nausea/Vomiting Informant: patient Onset/Context/Timing Onset: Days (6) Context: Gradual Onset Timing: Continuous Quality: Aching Location: Frontal Worsened by: Nothing Relieved by: Nothing Narrative Narrative: Patient presents with sore throat, headache, and nausea and vomiting that has been getting worse over the last 6 days. Patient states it is gradually getting worse. Patient describes her headache as aching. Patient states it is over the frontal area. Patient states nothing makes it worse and nothing makes it better. Patient admits to a fever of 100.2 at home. Patient also admits to some rhinorrhea. Patient admits to some pain into her neck. Patient also admits to some nausea and vomiting. Patient denies any hematemesis or coffee-ground emesis. Patient denies any abdominal pain. [facility] Medical History Abrasion of right leg Bipolar disorder Depressed Mild dehydration Other tear of lateral meniscus, current injury, right knee, subsequent encounter Other tear of medial meniscus, current injury, right knee, initial encounter (09/19/16) Sprain of anterior cruciate ligament of right knee, initial encounter (08/16/16) Sprain of anterior cruciate ligament of right knee, subsequent encounter Home Medications metaxalone 800 mg tablet 800 mg PO TID #21 tabs 12/28/22 [Rx Last Taken Unknown] Allergy/AdvReac Type Severity Reaction Status Date / Time morphine Allergy Anaphylaxis Verified 12/28/22 07:16 Family History Other CVA (cerebral vascular accident) Hypertension Lymph node cancer Myocardial infarction Surgical History CEOT removed from jaw right knee ACL Social History current occupational status: employed Smoking Status: Never smoker ROS ROS ED Constitutional Constitutional ED: Reports fever(s); Denies chills Eyes Eyes: Denies blurry vision or change in vision ENT ENT ED: Reports rhinorrhea and sore throat Cardiovascular Cardiovascular: Denies chest pain or palpitations Respiratory/Chest Respiratory/Chest: Denies cough or dyspnea Gastrointestinal Gastrointestinal: Reports nausea and vomiting Genitourinary Genitourinary ED: Denies dysuria or hematuria Musculoskeletal Musculoskeletal: Reports neck pain; Denies back pain Integumentary Denies abscess or rash Neurologic Neurologic: Reports headache(s); Denies weakness Allergic/Immunologic Allergic/Immunologic ED: Denies mouth swelling or urticaria EXAM Physical Exam Const Vital Signs: 03/04/23 06:08 Temperature 97 F L Temperature Source Temporal Pulse Rate 101 H Respiratory Rate 16 Blood Pressure 129/73 H Blood Pressure Mean 91 Pulse Ox 97 Oxygen Delivery Method Room Air Positive well nourished and well developed General Appearance ED: well developed and NAD HEENT Reports moist mucous membranes Neck supple and no JVD Resp normal respiratory effort and clear to auscultation bilaterally Cardio regular rate and regular rhythm GI non-tender and non-distended Palpation: soft Extremity normal to inspection Neuro oriented x3, CN's II-XII intact bilaterally and no sensory deficits noted Sensorium / Orientation: alert Motor Exam: strength 5/5 throughout Psych mental status grossly normal MDM MDM MDM Narrative Medical decision making narrative: Differential diagnosis includes viral illness, sinusitis, viral pharyngitis, dehydration, and electrolyte abnormality. CBC will be obtained to assess for leukocytosis and anemia. Basic metabolic profile will be obtained to assess for electrolyte abnormality and renal function. Lab Data Attestation: I reviewed the patient's lab results. Lab results narrative: CBC was reviewed and was within normal limits. Basic metabolic profile was reviewed and was within normal limits. Labs: Laboratory Results - last 24 hr 03/04/23 06:30 WBC 10.6 RBC 4.78 Hgb 13.5 Hct 42.1 MCV 88.1 MCH 28.2 MCHC 32.1 RDW Std Deviation 40.9 RDW Coeff of Teresa 12.7 Plt Count 390 MPV 11.1 Immature Gran % (Auto) 0.600 Neut % (Auto) 47.9 Lymph % (Auto) 34.3 [place] % (Auto) 7.0 Eos % (Auto) 9.4 H Baso % (Auto) 0.8 Absolute Neuts (auto) 5.1 Absolute Lymphs (auto) 3.65 Nucleated RBC % 0 Sodium 139 Potassium 3.9 Chloride 107 Carbon Dioxide 27.0 Anion Gap 5 BUN 16 Creatinine 0.76 Estim Creat Clear Calc 109.62 Est GFR (MDRD) Af Amer 122 Est GFR (MDRD) Non-Af 101 BUN/Creatinine Ratio 20.9 H Glucose 93 Calcium 9.0 Treatment and Re-Evaluation :: Patient was given IV fluids, Reglan, Benadryl, and Toradol. Patient was advised that this is most likely a viral illness. Patient was instructed to rest in a dark quiet room. Patient was instructed to follow-up with her primary care physician in 5 to 7 days. Patient understood and was agreeable with the plan. All questions were answered. Discharge Plan Triage Chief Complaint: Nausea/Vomiting Other Complaint: Headache ED Provider: Jared Brito Dx/Rx/DC Orders Clinical Impression: Headache, Viral illness Instructions: ED Headache Unspecified, ED Viral Syndrome (Adult) Prescriptions: No Action metaxalone 800 mg tablet 800 mg PO TID Qty: 21 0RF Stand Alone Forms: ED Work / School Excuse Primary Care Provider: Care Physician,No Primary Referrals: Care Physician,No Primary [Primary Care Provider] - Disposition Disposition: Home, Self Care
[2023-03-04] MEDS: 0.9% Normal Saline (1000mL) 1,000 ML 999 ML IV (06:33)
[2023-03-04] MEDS: Metoclopramide 10 MG/2 ML Vial IV (06:34)
[2023-03-04] MEDS: DiphenhydrAMINE 50 MG/ML Syringe 25 MG IV (06:35)
[2023-03-04] MEDS: Ketorolac 30 MG/ML Syringe IV (06:38)
[2023-03-04 06:47] LABS: Anion Gap 5 (5-15); BUN 16 mg/dL (7-18); BUN/Creat Ratio 20.9 RATIO (10-20); Chloride 107 mmol/L (98-107); Creatinine, Serum 0.76 mg/dL (0.55-1.02); EST Glomerular Filtration Rate 101 mL/min (>60); Est Glom Filt Rate - Afr Amer 122 mL/min (>60); Estimated Creatinine Clearance 109.62 ml/min; Glucose 93 mg/dL (74-106); Potassium 3.9 mmol/L (3.5-5.1); Sodium Level 139 mmol/L (136-145)
[2023-03-04 06:52] LABS: Absolute Lymphocyte Count 3.65 X10^3/uL (0.83-4.51); Absolute Neutrophil Count 5.1 X10^3/uL (2.0-7.7); Basophil# 0.09 X10^3/uL; Basophil% 0.8 % (0-1); Eosinophils% 9.4 % (0-5); Hematocrit 42.1 % (37-47); Hemoglobin 13.5 g/dL (12.0-15.0); Lymphocyte # 3.65 X10^3/ul (0.83-4.51); Lymphocyte % 34.3 % (19-41); Mean Corp Hgb Conc 32.1 g/dL (32-36); Mean Corpuscular Hgb 28.2 pg (27.0-32.0); Mean Corpuscular Volume 88.1 fL (81-99); Mean Platelet Vol. 11.1 fl (6.2-12.0); Monocyte# 0.74 X10^3/uL; NRBC Flagged by Analyzer 0 % (0-5); Neutrophil % 47.9 % (47-70); Platelet Count 390 K/mm3 (150-450); RBC Distribution Width CV 12.7 % (11.6-14.6); RBC Distribution Width SD 40.9 fl (35.1-43.9); Red Blood Count 4.78 M/mm3 (4.2-5.4); White Blood Count 10.6 K/mm3 (4.4-11.0)
[2023-03-04 07:14] VITALS: BP 119/76; PULSE 93; RESP 18; O2SAT 96
== END 2023-03-04 07:15 | disposition home or self-care (01) ==
LOC: ED 07:00
PROVIDERS: Emergency Provider Emergency Medicine; Visit Provider Emergency Medicine
DX: R51.9 Headache, unspecified (principal); B34.9 Viral infection, unspecified
CPT/HCPCS: 80048; 85025; 96374; 96375; 99284; J7030

== ENCOUNTER 2023-03-09 17:49 | Emergency (ER) | payer MEDICAID, SELFPAY ==
[2023-03-09 17:50] VITALS: BP 121/76; PULSE 99; RESP 14; TEMP 36.8; O2SAT 98; BMI 35.6
--- NOTE | 2023-03-09 18:18 | EX.ED.DYSGE1 ---
HPI <JULISSA López - Last Filed: 03/09/23 20:23> History of Present Illness Chief Complaint: General Illness Narrative Narrative: Patient presenting today requesting to be tested for hepatitis C and HIV. She reports that her girlfriend went to urgent care with a sore throat and was told by a worker that she needed to be tested for HIV and hepatitis C. Patient denies any known infection with either these or any STDs. She denies any new tattoos, piercings, injection drug use. She feels well and denies a PMH of any chronic health conditions. PFSH <JULSISA López - Last Filed: 03/09/23 20:23> PFSH Medical History Abrasion of right leg Bipolar disorder Depressed Mild dehydration Other tear of lateral meniscus, current injury, right knee, subsequent encounter Other tear of medial meniscus, current injury, right knee, initial encounter (09/19/16) Sprain of anterior cruciate ligament of right knee, initial encounter (08/16/16) Sprain of anterior cruciate ligament of right knee, subsequent encounter Home Medications metaxalone 800 mg tablet 800 mg PO TID #21 tabs 12/28/22 [Rx Last Taken Unknown] Allergy/AdvReac Type Severity Reaction Status Date / Time morphine Allergy Anaphylaxis Verified 03/09/23 17:50 Family History Other CVA (cerebral vascular accident) Hypertension Lymph node cancer Myocardial infarction Surgical History CEOT removed from jaw right knee ACL Social History current occupational status: employed Smoking Status: Never smoker ROS <JULISSA López - Last Filed: 03/09/23 20:23> ROS ED Constitutional Constitutional ED: Denies chills or fever(s) Cardiovascular Cardiovascular: Denies chest pain Respiratory/Chest Respiratory/Chest: Denies cough or dyspnea Gastrointestinal Gastrointestinal: Denies abdominal pain, diarrhea, nausea or vomiting Musculoskeletal Musculoskeletal: Denies arthralgias or myalgias Integumentary Denies rash Neurologic Neurologic: Denies weakness EXAM <JULISSA López - Last Filed: 03/09/23 20:23> Physical Exam Const Vital Signs: 03/09/23 17:50 03/09/23 18:27 03/09/23 18:29 Temperature 98.3 F Temperature Source Temporal Pulse Rate 99 68 Respiratory Rate 14 14 Respiratory Effort Normal Respiratory Pattern Normal Blood Pressure 121/76 H Blood Pressure Mean 91 Pulse Ox 98 Oxygen Delivery Method Room Air Positive well nourished, well developed and no apparent distress General Appearance ED: well developed HEENT Reports normocephalic and head/scalp atraumatic Mouth ED: Yes moist mucous membranes normal Eyes PERRL and EOMs intact bilaterally Neck full ROM and supple Chest Wall inspection of chest normal Resp normal respiratory effort and clear to auscultation bilaterally Cardio regular rate and regular rhythm GI soft to palpation, non-tender, non-distended and no masses Back/Spine normal ROM and normal to inspection Extremity normal to inspection and full ROM Neuro oriented x3, CN's II-XII intact bilaterally, moves all extremities, no focal motor deficits and no sensory deficits noted Sensorium / Orientation: awake and alert Psych mental status grossly normal and thought process normal Skin no rashes or lesions noted and no wounds <Dr. Frederic Holland MD - Last Filed: 03/09/23 18:31> Physical Exam Const Vital Signs: 03/09/23 17:50 03/09/23 18:27 03/09/23 18:29 Temperature 98.3 F Temperature Source Temporal Pulse Rate 99 68 Respiratory Rate 14 14 Respiratory Effort Normal Respiratory Pattern Normal Blood Pressure 121/76 H Blood Pressure Mean 91 Pulse Ox 98 Oxygen Delivery Method Room Air MDM <JULISSA López - Last Filed: 03/09/23 20:23> [facility] MDM Narrative Medical decision making narrative: Patient presenting today requesting to be tested for HIV and hepatitis. She does not have any symptoms to indicate either of these, however her girlfriend was told she needed to be tested. Labs have been drawn, they will not be made until Saturday. I have given her a PCP referral. She will be discharged home in stable condition and is comfortable with plan. I have personally performed a face to face assessment of the patient and have reviewed the CATIA Note. I performed a substantive portion of the visit including all aspects of the following. My massey findings include: History is-year-old female requesting testing for positive HIV and hepatitis. No significant past medical history. Denies any complaints. Exam is [well-appearing 22-year-old female. Vital signs stable afebrile. HEENT exam unremarkable. Lungs clear. Heart regular rhythm. Abdomen soft nontender. Normal bowel sounds no peritoneal signs. Nontender. Moving all 4 extremities. Nontender no edema. Neurologically she is awake and alert.] Medical Decision Making [. HIV and hepatitis test those are back so we will not be back till Saturday. She will be instructed to follow-up with a local primary care physician to get the results.] Other additions or changes: [None] <Dr. Frederic Holland MD - Last Filed: 03/09/23 18:31> [facility] Narrative Medical decision making narrative: I have personally performed a face to face assessment of the patient and have reviewed the CATIA Note. I performed a substantive portion of the visit including all aspects of the following. My massey findings include: History is-year-old female requesting testing for positive HIV and hepatitis. No significant past medical history. Denies any complaints. Exam is [well-appearing 22-year-old female. Vital signs stable afebrile. HEENT exam unremarkable. Lungs clear. Heart regular rhythm. Abdomen soft nontender. Normal bowel sounds no peritoneal signs. Nontender. Moving all 4 extremities. Nontender no edema. Neurologically she is awake and alert.] Medical Decision Making [. HIV and hepatitis test those are back so we will not be back till Saturday. She will be instructed to follow-up with a local primary care physician to get the results.] Other additions or changes: [None] History & Record Review Discussion w/independent historian: Patient Lab Data Attestation: I reviewed the patient's lab results. Lab results narrative: The labs that we ordered are batched and will not be resulted until Saturday. Discharge Plan Triage Chief Complaint: General Illness ED Midlevel Provider: Krystle Dickens ED Provider: Frederic Holland Dx/Rx/DC Orders Clinical Impression: Encounter for laboratory test Instructions: STI Prescriptions: No Action metaxalone 800 mg tablet 800 mg PO TID Qty: 21 0RF Primary Care Provider: Care Physician,No Primary Referrals: Kristofer Blue MD [Med Staff - Active Staff] - Care Physician,No Primary [Primary Care Provider] - Activity Restrictions/Additional Instructions: Follow-up with your PCP. Disposition Disposition: Home, Self Care Discharge Date/Time: 03/09/23 18:51
[2023-03-09 18:27] VITALS: PULSE 68; RESP 14
[2023-03-11 09:37] LABS: HIV - WCH Non-Reactive (Nonreactive)
[2023-03-11 09:51] LABS: Hepatitis C Antibody Non-Reactive (Nonreactive)
== END 2023-03-09 18:51 | disposition home or self-care (01) ==
PROVIDERS: Physician Assistant; Emergency Provider Emergency Medicine; Visit Provider Emergency Medicine
DX: Z11.3 Encounter for screening for infections with a predominantly sexual mode of transmission (principal)
CPT/HCPCS: 86703; 86803; 99282

== ENCOUNTER 2023-05-11 13:21 | Emergency (ER) | payer MEDICAID, SELFPAY ==
[2023-05-11 13:22] VITALS: BP 150/83; PULSE 83; RESP 14; TEMP 36.3; O2SAT 98; BMI 35.8
--- OUTSIDE RECORDS SUMMARY | 2023-05-11 13:44 | XMS RPT_ITS | CCD ---
Author Name Unknown Address [address] [place] [address] Organization [facility] Care Team Providers Care Dobby Loom Fixer Name Role Phone Emilia Perry N Unavailable Doni Blanton Unavailable Kaveh Perryssica N Unavailable Kaveh Perryssica N Unavailable Kaveh Perryssica N Unavailable Orlando Emilia N Unavailable Kaveh Perryssica N Unavailable Doni Blanton Unavailable Bettye Bernabe Primary Care Provide r BETTYE JUAREZ Primary Care Unavailable JOVON ROBBINS Attending Unavailable JOVON ROBBINS Admitting Unavailable Required, No Pcp Unavailable Unavailable Anthony Gamino Unavailable Unavailable GEORGETTE RODRIGUEZ Attending Unavailable REFERRED, SELF Referring Unavailable GEORGETTE RODRIGUEZ Primary Care Unavailable TED PEPE Attending Unavailable REFERRED, SELF Referring Unavailable GEORGETTE RODRIGUEZ Primary Care Unavailable Unavailable Primary Care Provider UnavailDANIEL Reyes Attending Unavailable Allergies Allergy Classification Reported Allergen(s) Allergy Type Date of Onset Reaction(s) Facility (5 sources) Morphine; Translations: [Unknown] Drug Allergy 02-01-2018 Hives, Swelling [facility] Medications Current Medications Medication Drug Class(es) Dates Sig (Normalized) Sig (Original) citalopram 20 mg oral tablet (1 source) Serotonin Reuptake Inhibitor Start: 07-20-2019 take 1 tablet by mouth once daily citalopram (CELEXA) 20 MG tablet Take 1 (one) tablet (20 mg total) by mouth daily . 30 tablet 2 07/20/2019 Active dicyclomine hydrochloride 20 mg oral tablet (1 source) Anticholinergic Start: 01-08-2023 take 1 tablet by mouth every six hours for muscle spasms Dicyclomine 20 MG tablet Take 1 tablet by mouth every 6 hours. For abdominal spasms 30 tablet 0 01/08/2023 Active omeprazole 20 mg delayed release oral capsule (1 source) Proton Pump Inhibitor Start: 01-08-2023 take 1 capsule by mouth once daily omeprazole [address] capsule Take 1 capsule by mouth daily. 14 capsule 0 01/08/2023 Active ondansetron 4 mg disintegrating oral tablet (1 source) Serotonin-3 Receptor Antagonist Start: 01-08-2023 take 1 tablet by mouth every four hours as needed Ondansetron 4 MG Tab Dispersible tablet Take 1 tablet by mouth every 4 hours as needed for Nausea. Place on tongue 30 tablet 0 01/08/2023 Active Completed/Discontinued Medications Medication Drug Class(es) Dates Sig (Normalized) Sig (Original) iohexol (OMNIPAQUE) 350 MG/ML injection 75 mL (1 source) Start: 01-08-2023 End: 01-08-2023 iohexol (OMNIPAQUE) 350 MG/ML injection 75 mL 250 ml sodium chloride 9 mg/ml injection (2 sources) Start: 01-08-2023 End: 01-08-2023 Sodium chloride 0.9% IV solution 75 mL sulfamethoxazole 800 mg / trimethoprim 160 mg oral tablet (2 sources) Dihydrofolate Reductase Inhibitor Antibacterial, Sulfonamide Antimicrobial Start: 10-26-2019 End: 10-26-2019 sulfamethoxazole -trimethoprim (BACTRIM DS,SEPTRA DS) 800-160 mg per tablet 1 tablet Problems Active Problems Problem Classification Problem Date Documented Date Episodic/Chronic Abdominal pain (3 sources) Generalized abdominal pain; Translations: [Generalized abdominal pain] Onset: 01-08-2023 01-08-2023 Episodic Disorders usually diagnosed in infancy childhood or adolescence (1 source) Adolescent - emotional problem ; Translations: [Emotional disturbance of adolescence] Onset: 12-12-2017 12-12-2017 Chronic Mood disorders (1 source) Depressive disorder; Translations: [Adolescent depression] Onset: 12-12-2017 12-12-2017 Chronic Other female genital disorders (1 source) Mucous retention cyst of cervix uteri; Translations: [Other specified noninflammatory disorders of cervix uteri] 01-08-2023 Episodic Other female genital disorders (2 sources) Other specified noninflammatory disorders of cervix uteri; Translations: [Other specified noninflammatory disorders of cervix uteri] Onset: 01-08-2023 Episodic Other injuries and conditions due to external causes (2 sources) Heat syncope; Translations: [Heat syncope] 02-17-2021 Episodic Residual codes; unclassified (1 source) Self-injurious behavior; Translations: [Self-injurious behavior] Onset: 12-12-2017 12-12-2017 Chronic Skin and subcutaneous tissue infections (1 source) Cellulitis of left lower limb; Translations: [Cellulitis of left lower extremity] Syncope (2 sources) Syncope 02-17-2021 Episodic Past or Other Problems Problem Classification Problem Date Documented Da te Episodic/Chronic Joint disorders and dislocations; trauma-related (20 sources) Other tear of medial meniscus, current injury, right knee, initial encounter; Translations: [Other tear of lateral meniscus, current injury, right knee, initial encounter] Onset: 08-16-2016 09-20-2016 Episodic Other aftercare (14 sources) Other tear of lateral meniscus, current injury, right knee, subsequent encounter; Translations: [Sprain of anterior cruciate ligament of right knee, subsequent encounter] Onset: 09-19-2016 09-20-2016 Episodic Other non-traumatic joint disorders (11 sources) Hemarthrosis of knee; Translations: [Hemarthrosis, right knee] Onset: 08-16-2016 08-16-2016 Episodic Sprains and strains (15 sources) Sprain of anterior cruciate ligament of right knee, initial encounter; Translations: [Sprain of anterior cruciate ligament of right knee, subsequent encounter] Onset: 08-16-2016 08-16-2016 Episodic Results Test Name Value Interpretation Reference Range Facil ity Vital Signs Date Time Vital Sign Value Performing Clinician Facility 01-08-2023 19:07-0400 Diastolic blood pressure 75 mm[Hg] Daniel Tay MD Work Phone: [facility] 01-08-2023 19:07-0400 Heart rate 84 /min Daniel Tay MD Work Phone: [facility] 01-08-2023 19:07-0400 Respiratory rate 17 /min [facility] MD [facility] 01-08-2023 19:07-0400 SaO2% (BldA) [Mass fraction] 100 % Daniel Tay MD [facility] 01-08-2023 19:07-0400 Systolic blood pressure 121 mm[Hg] Daniel Tay MD Work Phone: [facility] 01-08-2023 17:11-0400 Body height 167.6 cm Daniel Tay MD Work Phone: [facility] 01-08-2023 17:11-0400 Body mass index (BMI) [Ratio] 35.51 kg/m2 Daniel Tay MD Work Phone: [facility] 01-08-2023 17:11-0400 Body weight 99.79 kg Daniel Tay MD Work Phone: [facility] 01-08-2023 17:09-0400 Body temperature 98.2 [degF] Daniel Tay MD Work Phone: [facility] 02-17-2021 16:13-0400 Diastolic blood pressure 66 mm[Hg] No Pcp Required [facility] 02-17-2021 16:13-0400 Diastolic blood pressure 57 mm[Hg] No Pcp Required [facility] 02-17-2021 16:13-0400 Diastolic blood pressure 50 mm[Hg] No Pcp Required [facility] 02-17-2021 16:13-0400 Heart rate 85 /min No Pcp Required [facility] 02-17-2021 16:13-0400 Heart rate 81 /min No Pcp Required [facility] 02-17-2021 16:13-0400 Heart rate 86 /min No Pcp Required [facility] 02-17-2021 16:13-0400 Heart rate 90 /min No Pcp Required [facility] 02-17-2021 16:13-0400 Respiratory rate 20 /min No Pcp Required [facility] 02-17-2021 16:13-0400 SaO2% (BldA) [Mass fraction] 97 % No Pcp Required [facility] 02-17-2021 16:13-0400 Systolic blood pressure 105 mm[Hg] No Pcp Required [facility] 02-17-2021 16:13-0400 Systolic blood pressure 98 mm[Hg] No Pcp Required [facility] 02-17-2021 16:13-0400 Systolic blood pressure 95 mm[Hg] No Pcp Required [facility] 02-17-2021 15:44-0400 Body height 167.6 cm No Pcp Required [facility] 02-17-2021 15:44-0400 Body temperature 97.34 [degF] No Pcp Required [facility] 02-17-2021 15:44-0400 Body weight 99 kg No Pcp Required [facility] 10-26-2019 19:01-0400 BMI (Body Mass Index) 29.95 kg/m2 [facility] 10-26-2019 19:01-0400 Body Temperature 98.6 [degF] [facility] 10-26-2019 19:01-0400 Body weight 81.65 kg [facility] 10-26-2019 19:01-0400 BP Diastolic 67 mm[Hg] [facility] 10-26-2019 19:01-0400 BP Systolic 119 mm[Hg] [facility] 10-26-2019 19:01-0400 Height 165.1 cm [facility] 10-26-2019 19:01-0400 Pulse (Heart Rate) 72 /min [facility] 10-26-2019 19:01-0400 Pulse Oximetry 98 % [facility] 10-26-2019 19:01-0400 Respiratory Rate 18 /min [facility] 08-16-2016 09:25-0400 Weight 72.58 kg Doni Blanton [facility] Medical [facility] er [facility] Medicine [facility] Orthopa[facility]ics Work Phone: Encounters Encounter Date Encounter Type Care Provider Facility Start: 01-08-2023 End: 01-08-2023 Emergency department patient visit DANIEL TAY [facility] Start: 01-08-2023 End: 01-08-2023 Emergency department patient visit Daniel Tay MD Work Phone: [facility] Emergency Department Start: 02-12-2022 End: 02-12-2022 ambulatory TED PEPE [facility] Start: 08-29-2021 End: 08-29-2021 ambulatory GEORGETTE ORTEGAANAN [facility] Start: 02-17-2021 End: 02-17-2021 Emergency department patient visit Anthony Gamino [facility] Emergency 04 Start: 10-26-2019 End: 10-26-2019 Emergency department patient visit BETTYE FrankySantiago [facility] Start: 10-26-2019 End: 10-26-2019 Emergency department patient visit Jovon Madden Crouse Work Phone: [facility] Emergency Department Procedures Date Procedure Procedure Detail Performing Clinician Start: 01-08-2023 Ct abdomen & pelvis w/contrast material Daniel Tay MD Work Phone: Start: 01-08-2023 Radiologic exam ches t 2 views Daniel Tay MD Work Phone: Start: 01-08-2023 End: 01-08-2023 Urinalysis microscopic only Daniel edgar MD Work Phone: Start: 01-08-2023 Urinalysis, reagent strip without microscopy Daniel Tay MD Work Phone: Start: 01-08-2023 Complete blood count with white cell differential, automated Daniel Tay MD Work Phone: Start: 01-08-2023 End: 01-08-2023 Comprehensive metabolic panel Daniel Tay MD Work Phone: Plan of Treatment Date Care Activity Detail Author Start: 08-11-2023 Tetanus vaccination [facility] Start: 12-21-2022 Influenza vaccination INFLUENZA VACCINE (#1) [facility] Start: 2022 Screening for malignant neoplasm of cervix CERVICAL CANCER SCREENING DISCUSSION [facility] Start: 03-07-2020 Depression Remission Assessment (PHQ9) Depression Remission Assessment (PHQ9) [facility] Start: 12-22-2019 Influenza vaccination given Sequential Influenza Vaccine (Season Ended) [facility] Start: 11-03-2019 End: 11-03-2019 Social Work 11/03/2019 Social Work [facility] Zaida Almanza, NON PROFIT [employer]CIAL [employer] [address] [place] [address] [facility] Start: 2017 Screening for Chlamydia trachomatis CHLAMYDIA SCREEN [facility] Start: 04-10-2017 End: 04-10-2017 Appointment Appointment [facility] Work Phone: Start: 01-09-2017 End: 01-09-2017 Appointment Appointment [facility] Work Phone: Start: 11-28-2016 End: 11-28-2016 Appointment Appointment [facility] Work Phone: Start: 11-19-2016 End: 11-19-2016 Appointment Appointment [facility] Work Phone: Start: 10-24-2016 End: 10-24-2016 Physical Therapy General Physical Therapy General Rehab [facility], [address] [place] [address], [id number] [facility] Work Phone: Start: 10-02-2016 End: 10-02-2016 Appointment Appointment [facility] Work Phone: Start: 10-02-2016 End: 10-02-2016 Appointment Appointment [facility] Work Phone: Start: 2016 HIV screening HIV SCREENING DISCUSSION [facility] Start: 08-16-2016 End: 08-16-2016 Mri jnt of lwr extre w/o dye MRI Joint Lower Extremity [facility] Work Phone: Start: 2004 History and physical examination, annual for health maintenance Wellness Visit [facility] Start: 03-15-2002 COVID-19 VACCINE (#1) COVID-19 VACCINE (#1) [facility] Start: 2001 Hepatitis C screening HEPATITIS C VIRUS SCREENING [facility] Start: 2001 Screening for Chlamydia trachomatis [facility] End: 10-26-2019 Aerobic microbial culture Wound Aerobic Culture Microbiology Routine Once for 1 Occurrences starting 10/26/2019 until 10/26/2019 [facility] Immunizations Immunization Date Immunization Notes Care Provider Fa cility 05-27-2020 influenza virus vaccine, unspecified formulation Daniel Tay MD Work Phone: [facility] Payers Date Payer Category Payer Medicaid [id number] 2016 Unknown [employer] PPO xxxxxxxxxxxx 2016-Present xxxxxxxxxxxx [id number] 2016 Unknown [id number] 2001 Unknown [id number] 2001 Unknown [id number] 2001 Unknown [id number] Unknown Unknown [id number] Social History Date Type Detail Facility Start: 10-26-2019 End: 01-08-2023 Tobacco smoking status NHIS Never smoker [facility] Start: 10-26-2019 End: 01-08-2023 Alcohol intake Lifetime non-drinker (finding) [facility] Start: 05-07-2019 History SDOH Alcohol Frequency 1 [facility] Start: 2001 Sex Assigned At Not on file [facility] Exposure to SARS-CoV -2 (event) Not sure [facility] Tobacco smoking consumption unknown [facility] Start: 01-08-2023 Tobacco use and exposure Smokeless tobacco non-user [facility] Start: 01-08-2023 History of Social function [facility] Start: 01-08-2023 Tobacco use panel [facility] Emergency department Note 01-08-2023 Klaudia Gomez RN - 01/08/2023 8:09 PM EDT Note Date & Type Note Facility 01-08-2023 Emergency departm ent Note Pt resting comfortably upon entering room, no distress noted, with easy respirations. Pt is alert and oriented x4. Pt given and educated on discharge instructions, medications reviewed and educated on those prescribed, s/s to return to ED and to follow up with PCP/GAS LOAD DISPATCHER as needed. Pt states understanding and has no further questions at this time. [facility] Emergency department Note 01-08-2023 Klaudia Gomez RN - 01/08/2023 8:09 PM Miah Dukes MD - 01/08/2023 7:54 PM Delta Pritchett RN - 01/08/2023 7:11 PM Yaneth Gomez RN - 01/08/2023 7:11 PM EDT Note Date & Type Note Facility 01-08-2023 Emergency departm ent Note Pt resting comfortably upon entering room, no distress noted, with easy respirations. Pt is alert and oriented x4. Pt given and educated on discharge instructions, medications reviewed and educated on those prescribed, s/s to return to ED and to follow up with PCP/GAS LOAD DISPATCHER as needed. Pt states understanding and has no further questions at this time. Patient was endorsed to me at shift change pending results of the test which is negative and the CT. For full history and physical refer to the initial physician's dictation. CT scan shows a large cystic appearing structure of the cervical region and lower uterine segment could be a nabothian cyst but suggest follow up with ultrasound. I discussed this finding with the patient. She states she has an appointment to see her OBGYN early in January and will take this up with her OBGYN at that time. The remaining CT of the abdomen and pelvis shows no findings of obstruction or acute inflammation. At this time she will be discharged home on Bentyl. I will also place her on some antiemetics and omeprazole. She will return if any worsening symptoms Impression Abdominal pain Uterine cyst Edouard Dukes MD 01/08/231955 Report given to Klaudia CORDERO Received handoff report from Frida CORDERO Pt. Unable to provide urine sample at this time DEPARTMENT OF EMERGENCY MEDICINE CHIEF COMPLAINT Abdominal Pain (To Ed with c/o Abd pain, and coughing up blood. Rates abd pain 7/10. Pain to mid abd. Symptoms x 1 week. Coughing up blood started today per pt.) BOUCHRA Quan is a 22 y.o. female who presents for about 1 week. Patient has had some intermittent vomiting as well. Patient has occasionally noted some small streaks of blood in the vomit. Patient started coughing 3 days ago. Patient has noted occasional small streaks of blood with coughing. No fever. No diarrhea. No urinary symptoms. REVIEW OF SYSTEMS Review of Systems Constitutional: No fevers, no chills Eyes: No vision change, no drainage ENT: No ear pain, no sore throat Cardiovascular: No chest pain, no edema Respiratory: No shortness of breath, Positive cough Gastrointestinal: Positive vomiting, no diarrhea Genitourinary: No dysuria, no frequency Musculoskeletal: No joint pain, no joint swelling Integumentary: No rash, no itching Neurologic: No headache, no confusion Psychiatric: No anxiety, no depression PAST MEDICAL HISTORY Past Medical History: Diagnosis Date Anxiety SURGICAL HISTORY Past Surgical History: Procedure Laterality Date KNEE SURGERY acl repair CURRENT MEDICATIONS Current Facility-Administered Medications Medication Dose Route Frequency Provider Last Rate Last Admin Ondansetron 4mg/2ml (ZOFRAN) injection 4 mg 4 mg Intravenous Once Daniel Tay MD Sodium chloride 0.9% IV solution 1,000 mL 1,000 mL Intravenous Once Daniel Tay MD No current outpatient medications on file. ALLERGIES Allergies Allergen Reactions Morphine Swelling FAMILY HISTORY History reviewed. No pertinent family history. SOCIAL HISTORY Social History Socioeconomic History Marital status: Not on file Spouse name: Not on file Number of children: Not on file Years of education: Not on file Highest education level: Not on file Occupational History Not on file Tobacco Use Smoking status: Never Smokeless tobacco: Never Substance and Sexual Activity Alcohol use: Never Drug use: Never Sexual activity: Not on file Other Topics Concern Not on file Social History Narrative Not on file Social Determinants of Health Financial Resource Strain: Not on file Food Insecurity: Not on file Transportation Needs: Not on file Physical Activity: Not on file Stress: Not on file Social Connections: Not on file Intimate Partner Violence: Not on file Housing Stability: Not on file PHYSICAL EXAM BP 136/80 Pulse 88 Temp 98.2 F (36.8 C) (Oral) Resp 18 Ht 1.676 m (5' 6 ) Wt 99.8 kg (220 lb) SpO2 99% BMI 35.51 kg/m Smoking Status Never Physical Exam The patient is well-developed, well-nourished, and in no acute distress. Head is atraumatic and normocephalic. Pupils are equal and reactive. Face is symmetric. Mucous membranes are moist. Neck is supple. Heart is regular rate and rhythm. Lungs are clear to auscultation. Abdomen is soft, nondistended. Epigastric tenderness without guarding or rebound. Skin is warm and dry. Extremities are warm and well perfused and without acute deformity. Neurologically, the patient is awake, alert, and without acute deficit. Psychiatrically, the patient is calm and cooperative. ED COURSE & MEDICAL DECISION MAKING Laboratory evaluation is unremarkable. Urinalysis is still pending as is the test. CT scan and chest x-ray are also pending. Patient will be handed off to Dr. Dukes at the change of shift for follow-up of these results and final disposition. Anticipate discharge home. Daniel aTy MD 01/08/23 1846 documented in this encounter [facility] Physician Emergency department Note 01-08-2023 Edouard Dukes MD - 01/08/2023 7:54 PM EDT Note Date & Type Note Facility 01-08-2023 Physician Emergen cy department Note Patient was endorsed to me at shift change pending results of the test which is negative and the CT. For full history and physical refer to the initial physician's dictation. CT scan shows a large cystic appearing structure of the cervical region and lower uterine segment could be a nabothian cyst but suggest follow up with ultrasound. I discussed this finding with the patient. She states she has an appointment to see her OBGYN early in January and will take this up with her OBGYN at that time. The remaining CT of the abdomen and pelvis shows no findings of obstruction or acute inflammation. At this time she will be discharged home on Bentyl. I will also place her on some antiemetics and omeprazole. She will return if any worsening symptoms Impression Abdominal pain Uterine cyst Edouard Dukes MD 01/08/231955 [facility] Emergency department Note 01-08-2023 Frida Pritchett RN - 01/08/2023 7:11 PM EDT Note Date & Type Note Facility 01-08-2023 Emergency departm ent Note Report given to Klaudia CORDERO [facility] Emergency department Note 01-08-2023 Klaudia Gomez RN - 01/08/2023 7:11 PM EDT Note Date & Type Note Facility 01-08-2023 Emergency departm ent Note Received handoff report from Frida CORDERO [facility] Emergency department Note 01-08-2023 Frida Pritchett RN - 01/08/2023 6:01 PM EDT Note Date & Type Note Facility 01-08-2023 Emergency departm ent Note Pt. Unable to provide urine sample at this time [facility] Physician Emergency department Note 01-08-2023 Daniel Tay MD - 01/08/2023 5:35 PM EDT Note Date & Type Note Facility 01-08-2023 Physician Emergency department Note DEPARTMENT OF EMERGENCY MEDICINE CHIEF COMPLAINT Abdominal Pain (To Ed with c/o Abd pain, and coughing up blood. Rates abd pain 7/10. Pain to mid abd. Symptoms x 1 week. Coughing up blood started today per pt.) BOUCHRA Quan is a 22 y.o. female who presents for about 1 week. Patient has had some intermittent vomiting as well. Patient has occasionally noted some small streaks of blood in the vomit. Patient started coughing 3 days ago. Patient has noted occasional small streaks of blood with coughing. No fever. No diarrhea. No urinary symptoms. REVIEW OF SYSTEMS Review of Systems Constitutional: No fevers, no chills Eyes: No vision change, no drainage ENT: No ear pain, no sore throat Cardiovascular: No chest pain, no edema Respiratory: No shortness of breath, Positive cough Gastrointestinal: Positive vomiting, no diarrhea Genitourinary: No dysuria, no frequency Musculoskeletal: No joint pain, no joint swelling Integumentary: No rash, no itching Neurologic: No headache, no confusion Psychiatric: No anxiety, no depression PAST MEDICAL HISTORY Past Medical History: Diagnosis Date Anxiety SURGICAL HISTORY Past Surgical History: Procedure Laterality Date KNEE SURGERY acl repair CURRENT MEDICATIONS Current Facility-Administered Medications Medication Dose Route Frequency Provider Last Rate Last Admin Ondansetron 4mg/2ml (ZOFRAN) injection 4 mg 4 mg Intravenous Once Daniel Tay MD Sodium chloride 0.9% IV solution 1,000 mL 1,000 mL Intravenous Once Daniel Tay MD No current outpatient medications on file. ALLERGIES Allergies Allergen Reactions Morphine Swelling FAMILY HISTORY History reviewed. No pertinent family history. SOCIAL HISTORY Social History Socioeconomic History Marital status: Not on file Spouse name: Not on file Number of children: Not on file Years of education: Not on file Highest education level: Not on file Occupational History Not on file Tobacco Use Smoking status: Never Smokeless tobacco: Never Substance and Sexual Activity Alcohol use: Never Drug use: Never Sexual activity: Not on file Other Topics Concern Not on file Social History Narrative Not on file Social Determinants of Health Financial Resource Strain: Not on file Food Insecurity: Not on file Transportation Needs: Not on file Physical Activity: Not on file Stress: Not on file Social Connections: Not on file Intimate Partner Violence: Not on file Housing Stability: Not on file PHYSICAL EXAM BP 136/80 Pulse 88 Temp 98.2 F (36.8 C) (Oral) Resp 18 Ht 1.676 m (5' 6 ) Wt 99.8 kg (220 lb) SpO2 99% BMI 35.51 kg/m Smoking Status Never Physical Exam The patient is well-developed, well-nourished, and in no acute distress. Head is atraumatic and normocephalic. Pupils are equal and reactive. Face is symmetric. Mucous membranes are moist. Neck is supple. Heart is regular rate and rhythm. Lungs are clear to auscultation. Abdomen is soft, nondistended. Epigastric tenderness without guarding or rebound. Skin is warm and dry. Extremities are warm and well perfused and without acute deformity. Neurologically, the patient is awake, alert, and without acute deficit. Psychiatrically, the patient is calm and cooperative. ED COURSE & MEDICAL DECISION MAKING Laboratory evaluation is unremarkable. Urinalysis is still pending as is the test. CT scan and chest x-ray are also pending. Patient will be handed off to Dr. Dukes at the change of shift for follow-up of these results and final disposition. Anticipate discharge home. Daniel Tay MD 01/08/23 1846 [facility] Work Phone: Evaluation note Note Date & Type Note Facility documented in this encounter [facility] Hospital Discharge instructions Attachments Note Date & Type Note Facility Hospital Discharge instructions The following attachments cannot be sent through Care Everywhere.Abdominal Pain (Fijian)documented in this encounter [facility] Reason for referral (narrative) Consultation (Urgent) - New Request Note Date & Type Note Facility Referral ID Status Reason Start Date Expiration Date V isits Requested Visits Authorized [id number] New Request 01/08/2023 02/02/2024 1 1 [facility] Discharge Instructions * Attachments The following attachments cannot be sent through Care Everywhere. 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 Rates abd pain 10/29. Pain to mid abd. Symptoms x 1 week. Coughing up blood started today per pt. Preethi Hunter RN - 10/26/2019 7:05 PM EDPreethi Casey RN - 10/26/2019 7:01 PM EDAurora Godinez LPN - 10/26/2019 6:58 PM EDT ED Notes (unrecognized secti on and content) DR. ROBBINS AT BEDSIDE TO ASSESS PT. PT ARRIVES TO THE ED WITH COMPLAINT OF BLISTER TO LEFT FOOT THAT OCCURRED 1 WEEK AGO. PT STATES THAT SHE WAS NOT WEARING SOCKS WITH HER SHOES THAT CAUSES THE BLISTER. THE BLISTER IS POPPED AND WAS COVERED WITH BANDAID. PT STATES THAT IT IS GETTING WORSE NOT BETTER. PT IS ALERT AND ORIENTED X3. Bed: 18 Expected date: Expected time: Means of arrival: Comments: Next Patient documented in this encounter INFORMATION SOURCE (unrecogn ized section and content) DATE CREATED AUTHOR AUTHOR'S ORGANIZ ATION 02/22/2021 [facility] DATE CREATED AUTHOR AUTHOR'S ORGANIZ ATION 02/15/2022 [facility] DATE CREATED AUTHOR AUTHOR'S ORGANIZ ATION 01/13/2023 [facility] <item> Privacy Markings (unrecogniz ed section and content) Section Author: Anai Reeder PROHIBITION ON REDISCLOSURE OF CONFIDENTIAL INFORMATION This notice accompanies a disclosure of information concerning a client made to you with the consent of such client. Scheduled Active and Recently Administ ered Medications (unrecognized section and content) FOR RECORDS PERTAINING TO PATIENTS WHO ARE OR HAVE BEEN ENROLLED IN A CHEMICAL DEPENDENCY/SUBSTANCEABUSE PROGRAM, SOME INFORMATION MAY BE OMITTED. This clinical summary was aggregated from multiple sources. Caution should be exercised in using it in the provision of clinical care. This summary normalizes information from multiple sources, and as a consequence, information in this document may materially change the coding, format and clinical context of patient data. In addition, data may be omitted in some cases. CLINICAL DECISIONS SHOULD BE BASED ON THE PRIMARY CLINICAL RECORDS. [employer] [facility]. provides no warranty or guarantee of the accuracy or completeness of information in this document.
--- NOTE | 2023-05-11 13:51 | EDS_ITS ---
HPI <JULISSA López - Last Filed: 05/11/23 15:41> HPI - Female History of Present Illness Chief Complaint: Female C/O Narrative Narrative: Patient presenting today requesting to be tested for chlamydia. She reports that her girlfriend recently tested positive for chlamydia. She denies any fever, chills, dysuria, abnormal vaginal discharge, abdominal pain, or pelvic pain. PFSH <JULISSA López - Last Filed: 05/11/23 15:41> PFSH Medical History Abrasion of right leg Bipolar disorder Depressed Mild dehydration Other tear of lateral meniscus, current injury, right knee, subsequent encounter Other tear of medial meniscus, current injury, right knee, initial encounter (09/19/16) Sprain of anterior cruciate ligament of right knee, initial encounter (08/16/16) Sprain of anterior cruciate ligament of right knee, subsequent encounter Home Medications doxycycline hyclate 100 mg tablet 100 mg PO BID #14 tabs 05/11/23 [Rx Last Taken Unknown] Allergy/AdvReac Type Severity Reaction Status Date / Time morphine Allergy Anaphylaxis Verified 03/09/23 17:50 Family History Other CVA (cerebral vascular accident) Hypertension Lymph node cancer Myocardial infarction Surgical History CEOT removed from jaw right knee ACL Social History current occupational status: employed Smoking Status: Never smoker ROS <JULISSA López - Last Filed: 05/11/23 15:41> ROS ED Constitutional Constitutional ED: Denies chills or fever(s) Cardiovascular Cardiovascular: Denies chest pain Respiratory/Chest Respiratory/Chest: Denies cough or dyspnea Gastrointestinal Gastrointestinal: Denies abdominal pain, nausea or vomiting Genitourinary Genitourinary ED: Denies dysuria, hematuria or urinary urgency Musculoskeletal Musculoskeletal: Denies arthralgias or myalgias Integumentary Denies rash Neurologic Neurologic: Denies weakness EXAM <JULISSA López - Last Filed: 05/11/23 15:41> Physical Exam Const Vital Signs: 05/11/23 13:22 05/11/23 13:57 Temperature 97.3 F L Temperature Source Temporal Pulse Rate 83 85 Respiratory Rate 14 14 Blood Pressure 150/83 H 135/76 H Blood Pressure Mean 105 95 Pulse Ox 98 98 Oxygen Delivery Method Room Air Positive well nourished, well developed and no apparent distress General Appearance ED: well developed HEENT Reports normocephalic and head/scalp atraumatic Mouth ED: Yes moist mucous membranes normal Eyes PERRL and EOMs intact bilaterally Neck full ROM and supple Chest Wall inspection of chest normal Resp normal respiratory effort and clear to auscultation bilaterally Cardio regular rate and regular rhythm GI soft to palpation, non-tender, non-distended and no masses Back/Spine normal ROM and normal to inspection Extremity normal to inspection and full ROM Neuro oriented x3, CN's II-XII intact bilaterally, moves all extremities, no focal motor deficits and no sensory deficits noted Sensorium / Orientation: awake and alert Psych mental status grossly normal and thought process normal Skin no rashes or lesions noted and no wounds <Dr. Johann Ovalle MD - Last Filed: 05/11/23 13:59> Physical Exam Const Vital Signs: 05/11/23 13:22 05/11/23 13:57 Temperature 97.3 F L Temperature Source Temporal Pulse Rate 83 85 Respiratory Rate 14 14 Blood Pressure 150/83 H 135/76 H Blood Pressure Mean 105 95 Pulse Ox 98 98 Oxygen Delivery Method Room Air MDM <JULISSA López - Last Filed: 05/11/23 15:41> [facility] MDM Narrative Medical decision making narrative: Patient presenting today due to known exposure to chlamydia, her girlfriend recently tested positive. She does not have any symptoms. She does not want a pelvic examination. Gonorrhea/chlamydia test will be obtained. She will be treated for chlamydia with doxycycline. She will be discharged home in stable condition and is comfortable with plan. <Dr. Johann Ovalle MD - Last Filed: 05/11/23 13:59> [facility] Treatment and Re-Evaluation Narrative: I have personally performed a face to face assessment of the patient and have reviewed the CATIA Note. I performed a substantive portion of the visit including all aspects of the following. My massey findings include: History is asymptomatic, sexual contact with someone who tested positive for chlamydia. She showed me the test. It was positive for chlamydia negative for gonorrhea. Exam is benign/normal. Benign abdomen. Normal neurologic exam. Medical Decison Making send urine for GC/chlamydia PCR and treat empirically for chlamydia only. Other additions or changes: [None] Discharge Plan Triage Chief Complaint: Female C/O ED Midlevel Provider: Krystle Dickens ED Provider: Johann Ovalle Dx/Rx/DC Orders Clinical Impression: Encounter for assessment of STD exposure, Chlamydia contact Instructions: ED Chlamydia, Treated (Female) Prescriptions: New doxycycline hyclate 100 mg tablet 100 mg PO BID Qty: 14 0RF Primary Care Provider: Care Physician,No Primary Referrals: Care Physician,No Primary [Primary Care Provider] - Activity Restrictions/Additional Instructions: Follow-up with your PCP. Return for any worsening of your symptoms. Disposition Disposition: Home, Self Care Discharge Date/Time: 05/11/23 14:02
[2023-05-11 13:57] VITALS: BP 135/76; PULSE 85; RESP 14; O2SAT 98
== END 2023-05-11 14:02 | disposition home or self-care (01) ==
PROVIDERS: Emergency Provider Emergency Medicine; Visit Provider Emergency Medicine
DX: Z11.3 Encounter for screening for infections with a predominantly sexual mode of transmission (principal)
CPT/HCPCS: 87491; 87591; 99282

== ENCOUNTER 2023-07-07 16:20 | Emergency (ER) | payer MEDICAID, SELFPAY ==
[2023-07-07 16:22] VITALS: BP 148/98; PULSE 110; RESP 18; TEMP 36.4; O2SAT 97; BMI 35.0
--- NOTE | 2023-07-07 17:45 | ED.VIS.DENTA ---
HPI <JULISSA Lee - Last Filed: 07/07/23 18:35> History of Present Illness Chief Complaint: Dental Narrative Narrative: 22-year-old female presents with dental pain. One of her right lower premolars cracked a while ago. She has been having pain since May and was prescribed penicillin VK. She states she just got back from vacation and filled it on June 25 and has been taking it. The tooth cracked more today causing increased pain. She has not taken any pain relievers today. She has no fever chills or difficulty swallowing or breathing. PFSH <JULISSA Lee - Last Filed: 07/07/23 18:35> PFSH Medical History Abrasion of right leg Bipolar disorder Depressed Mild dehydration Other tear of lateral meniscus, current injury, right knee, subsequent encounter Other tear of medial meniscus, current injury, right knee, initial encounter (09/19/16) Sprain of anterior cruciate ligament of right knee, initial encounter (08/16/16) Sprain of anterior cruciate ligament of right knee, subsequent encounter Home Medications doxycycline hyclate 100 mg tablet 100 mg PO BID #14 tabs 05/11/23 [Rx Last Taken Unknown] Allergy/AdvReac Type Severity Reaction Status Date / Time morphine Allergy Anaphylaxis Verified 03/09/23 17:50 Family History Other CVA (cerebral vascular accident) Hypertension Lymph node cancer Myocardial infarction Surgical History CEOT removed from jaw right knee ACL Social History current occupational status: employed Smoking Status: Never smoker ROS <JULISSA Lee - Last Filed: 07/07/23 18:35> ROS ED ROS Narrative Constitutional: Negative for fever, chills, malaise. ENT: Positive for dental pain. Neuro: Negative for headache. EXAM <JULISSA Lee - Last Filed: 07/07/23 18:35> Physical Exam Narrative Exam Narrative: CONST: Patient sitting in no acute distress. EYES: Normal inspection. ENT: Right lower first premolar is cracked in half and tender to palpation, no periapical abscess, sublingual space is soft, no trismus or tongue elevation, normal posterior oropharynx. NECK: Normal inspection. Trachea midline, no submental or submandibular swelling. RESP: No respiratory distress, CTAB. CVS: Regular rate and rhythm, no murmur, no gallop. SKIN: Color normal, no rash, warm, dry, intact. EXTREMITIES: Normal appearance, no pedal edema. NEURO: Oriented x4. PSYCH: Normal affect. Const Vital Signs: 07/07/23 16:22 Temperature 97.6 F L Temperature Source Temporal Pulse Rate 110 H Respiratory Rate 18 Blood Pressure 148/98 H Blood Pressure Mean 114 Pulse Ox 97 Oxygen Delivery Method Room Air <Dr. Car Pace DO - Last Filed: 07/07/23 22:47> Physical Exam Const Vital Signs: 07/07/23 16:22 Temperature 97.6 F L Temperature Source Temporal Pulse Rate 110 H Respiratory Rate 18 Blood Pressure 148/98 H Blood Pressure Mean 114 Pulse Ox 97 Oxygen Delivery Method Room Air MDM <JULISSA Lee - Last Filed: 07/07/23 18:35> [facility] Narrative Medical decision making narrative: Patient's right lower premolar had cracked previously and she is taking penicillin. It cracked more today and she has increased pain. There is no evidence of a periapical abscess or Rocky's angina. I think her pain is secondary to the dental trauma. She was treated with IM Toradol and I discussed regimen of Tylenol/ibuprofen at home. Her family member states stable take her to the walk-in dental clinic this week. She was discharged in stable condition. <Dr. Car Pace, - Last Filed: 07/07/23 22:47> [facility] Narrative Medical decision making narrative: Patient's right lower premolar had cracked previously and she is taking penicillin. It cracked more today and she has increased pain. There is no evidence of a periapical abscess or Rocky's angina. I think her pain is secondary to the dental trauma. She was treated with IM Toradol and I discussed regimen of Tylenol/ibuprofen at home. Her family member states stable take her to the walk-in dental clinic this week. She was discharged in stable condition. This patient was seen with a PA/ADMINISTRATIVE LIAISON Individually assessed they patient including history and physical. I have reviewed everything on the chart that is available and agree with the documentation provided by the PA/ADMINISTRATIVE LIAISON including discussion about the assessment, treatment plan, discussion, and return precautions. Patient with dental fracture. This is not a new issue. The pain is increased but the patient has not taken anything for pain. She was given Toradol here. She is already on penicillin VK 500 4 times daily. She was counseled to use Tylenol and ibuprofen at home. No evidence of Ludewig's angina or other surgical emergency. Patient able to swallow without difficulty. Return precautions were discussed. Impression: 1. Dental fracture 2. Dental caries Discharge Plan Triage Chief Complaint: Dental ED Midlevel Provider: Silvana Campbell ED Provider: Car Pace Dx/Rx/DC Orders Clinical Impression: Cracked tooth, Pain due to dental trauma Instructions: Dental Trauma Prescriptions: No Action doxycycline hyclate 100 mg tablet 100 mg PO BID Qty: 14 0RF Primary Care Provider: Care Physician,No Primary Referrals: Care Physician,No Primary [Primary Care Provider] - Activity Restrictions/Additional Instructions: Alternate Tylenol 1000 mg and ibuprofen 600 mg every 3 hours for pain control and follow-up with a dentist Disposition Disposition: Home, Self Care Discharge Date/Time: 07/07/23 18:38
[2023-07-07] MEDS: Ketorolac 15 MG/ML Vial IM (17:46)
--- OUTSIDE RECORDS SUMMARY | 2023-07-07 18:39 | XMS RPT_ITS | CCD ---
Author Name Unknown Address [address] [place] [address] Organization [facility] Care Team Providers Care [employer] Finisher Name Role Phone Emilia Perry N Unavailable [...] 75 mm[Hg] Daniel Tay MD Work Phone: [facility] 01-08-2023 19:07-0400 Heart rate 84 /min Daniel Tay MD Work Phone: [employer] [facility] 01-08-2023 19:07-0400 Respiratory rate 17 /min Daniel Tay MD Work Phone: [facility] 01-08-2023 19:07-0400 SaO2% (BldA) [Mass fraction] 100 % Daniel Tay MD Work Phone: [facility] 01-08-2023 19:07-0400 Systolic blood pressure 121 mm[Hg] Daniel Tay MD Work Phone: [facility] 01-08-2023 17:11-0400 Body height 167.6 cm Daniel Tay MD Work Phone: [facility] 01-08-2023 17:11-0400 Body mass index (BMI) [Ratio] 35.51 kg/m2 Daniel Tay MD Work Phone: [employer] [facility] 01-08-2023 17:11-0400 Body weight 99.79 kg Daniel Tay MD Work Phone: [facility] 01-08-2023 17:09-0400 Body temperature 98.2 [degF] Daniel Tay MD Work Phone: [facility] 02-17-2021 16:13-0400 Diastolic blood pressure 66 mm[Hg] No Pcp Required [facility] 02-17-2021 16:13-0400 Diastolic blood pressure 57 mm[Hg] No Pcp Required [facility] 02-17-2021 16:13-0400 Diastolic blood pressure 50 mm[Hg] No Pcp Required [facility] 02-17-2021 16:13-0400 Heart rate 85 /min No Pcp Required [facility] 02-17-2021 16:13-0400 Heart rate 81 /min No Pcp Required [facility] 02-17-2021 16:13-0400 Heart rate 86 /min No Pcp Required [facility] 02-17-2021 16:13-0400 Heart rate 90 /min No Pcp Required [facility] 02-17-2021 16:13-0400 Respiratory rate 20 /min No Pcp Required [facility] 02-17-2021 16:13-0400 SaO2% (BldA) [Mass fraction] 97 % No Pcp Required [facility] 02-17-2021 16:13-0400 Systolic blood pressure 105 mm[Hg] No Pcp Required [facility] 02-17-2021 16:13-0400 Systolic blood pressure 98 mm[Hg] No Pcp Required [facility] 02-17-2021 16:13-0400 Systolic blood pressure 95 mm[Hg] No Pcp Required [facility] 02-17-2021 15:44-0400 Body height 167.6 cm No Pcp Required [facility] 02-17-2021 15:44-0400 Body temperature 97.34 [degF] No Pcp Required [facility] 02-17-2021 15:44-0400 Body weight 99 kg No Pcp Required [facility] 10-26-2019 19:01-0400 BMI (Body Mass Index) 29.95 kg/m2 [facility] 10-26-2019 19:01-0400 Body Temperature 98.6 [degF] [facility] 10-26-2019 19:01-0400 Body weight 81.65 kg [facility] 10-26-2019 19:01-0400 BP Diastolic 67 mm[Hg] [facility] 10-26-2019 19:01-0400 BP Systolic 119 mm[Hg] [facility] 10-26-2019 19:01-0400 Height 165.1 cm [facility] 10-26-2019 19:01-0400 Pulse (Heart Rate) 72 /min [facility] 10-26-2019 19:01-0400 Pulse Oximetry 98 % [facility] 10-26-2019 19:01-0400 Respiratory Rate 18 /min [facility] 08-16-2016 09:25-0400 Weight 72.58 kg Doni Blanton [facility] Medical [facility] Work Phone: Encounters Encounter Date Encounter Type Care Provider Facility Start: 01-08-2023 End: 01-08-2023 Emergency department patient visit DANIEL TAY [facility] Start: 01-08-2023 End: 01-08-2023 Emergency department patient visit Daniel Tay MD Work Phone: [facility] Emergency Department Start: 02-12-2022 End: 02-12-2022 ambulatory TED PEPE [facility] Start: 08-29-2021 End: 08-29-2021 ambulatory GEORGETTE ORTEGAANAN [facility] Start: 02-17-2021 End: 02-17-2021 Emergency department patient visit Anthony Gamino [facility] Emergency 04 Start: 10-26-2019 End: 10-26-2019 Emergency department patient visit BETTYE FrankySantiago [facility] Start: 10-26-2019 End: 10-26-2019 Emergency department patient visit Jovon Madden Crouse Work Phone: [facility] Emergency Department Procedures Date Procedure Procedure Detail Performing Clinician Start: 01-08-2023 Ct abdomen & pelvis w/contrast material Daniel Tay MD Work Phone: Start: 01-08-2023 Radiologic exam ches t 2 views Daniel Tay MD Work Phone: Start: 01-08-2023 End: 01-08-2023 Urinalysis microscopic only Daniel egdar MD Work Phone: Start: 01-08-2023 Urinalysis, reagent strip without microscopy Daniel Tay MD Work Phone: Start: 01-08-2023 Complete blood count with white cell differential, automated Daniel Tay MD Work Phone: Start: 01-08-2023 End: 01-08-2023 Comprehensive metabolic panel Daniel Tay MD Work Phone: Plan of Treatment Date Care Activity Detail Author Start: 08-11-2023 Tetanus vaccination [facility] Start: 12-21-2022 Influenza vaccination INFLUENZA VACCINE (#1) [facility] Start: 2022 Screening for malignant neoplasm of cervix CERVICAL CANCER SCREENING DISCUSSION [facility] Start: 03-07-2020 Depression Remission Assessment (PHQ9) Depression Remission Assessment (PHQ9) [facility] Start: 12-22-2019 Influenza vaccination given Sequential Influenza Vaccine (Season Ended) [facility] Start: 11-03-2019 End: 11-03-2019 Social Work 11/03/2019 Social Work [facility] Zaida Almanza, [employer] [address] [place] [address] [facility] Start: 2017 Screening for Chlamydia trachomatis CHLAMYDIA SCREEN [facility] Start: 04-10-2017 End: 04-10-2017 Appointment Appointment [facility] Work Phone: Start: 01-09-2017 End: 01-09-2017 Appointment Appointment [facility] Work Phone: Start: 11-28-2016 End: 11-28-2016 Appointment Appointment [facility] Work Phone: Start: 11-19-2016 End: 11-19-2016 Appointment Appointment [facility] Work Phone: Start: 10-24-2016 End: 10-24-2016 Physical Therapy General Physical Therapy General Re[facility], [address] [place] [address], [id number] [facility] Work Phone: Start: 10-02-2016 End: 10-02-2016 Appointment Appointment [facility] Work Phone: Start: 10-02-2016 End: 10-02-2016 Appointment Appointment [facility] Work Phone: Start: 2016 HIV screening HIV SCREENING DISCUSSION [facility] Start: 08-16-2016 End: 08-16-2016 Mri jnt of lwr extre w/o dye MRI Joint Lower Extremity [facility] Work Phone: Start: 2004 History and physical examination, annual for health maintenance Wellness Visit [facility] Start: 03-15-2002 COVID-19 VACCINE (#1) COVID-19 VACCINE (#1) [facility] Start: 2001 Hepatitis C screening HEPATITIS C VIRUS SCREENING [facility] Start: 2001 Screening for Chlamydia trachomatis [facility] End: 10-26-2019 Aerobic microbial culture Wound Aerobic Culture Microbiology Routine Once for 1 Occurrences starting 10/26/2019 until 10/26/2019 [facility] Immunizations Immunization Date Immunization Notes Care Provider Fa cility 05-27-2020 influenza virus vaccine, unspecified formulation Daniel Tay MD Work Phone: [facility] Payers Date Payer Category Payer Medicaid [id number] 2016 Unknown [employer] PPO xxxxxxxxxxxx 2016-Present xxxxxxxxxxxx [id number] 2016 Unknown [id number] 2001 Unknown [id number] 2001 Unknown [id number] 2001 Unknown [id number] Unknown Unknown [id number] Social History Date Type Detail Facility Start: 10-26-2019 End: 01-08-2023 Tobacco smoking status NHIS Never smoker [facility] Start: 10-26-2019 End: 01-08-2023 Alcohol intake Lifetime non-drinker (finding) [facility] Start: 05-07-2019 History SDOH Alcohol Frequency 1 [facility] Start: 2001 Sex Assigned At Not on file [facility] Exposure to SARS-CoV -2 (event) Not sure [facility] Tobacco smoking consumption unknown [facility] Start: 01-08-2023 Tobacco use and exposure Smokeless tobacco non-user [facility] Start: 01-08-2023 History of Social function [facility] Start: 01-08-2023 Tobacco use panel [facility] Emergency department Note 01-08-2023 Klaudia Gomez RN [...] to ED and to follow up with PCP/CHUTE TENDER as needed. Pt states understanding and has no further questions at this time. [facility] Emergency department Note 01-08-2023 Klaudia Gomez RN [...] to ED and to follow up with PCP/CHUTE TENDER as needed. Pt states understanding and has [...] discharge home. Daniel Tay MD 01/08/23 1846 documented in this encounter [facility] Physician Emergency department Note 01-08-2023 Edouard Dukes [...] pain Uterine cyst Edouard Dukes MD 01/08/231955 [facility] Emergency department Note 01-08-2023 Frida Pritchett RN - 01/08/2023 7:11 PM EDT Note Date & Type Note Facility 01-08-2023 Emergency departm ent Note Report given to Klaudia CORDERO [facility] Emergency department Note 01-08-2023 Klaudia Gomez RN - 01/08/2023 7:11 PM EDT Note Date & Type Note Facility 01-08-2023 Emergency departm ent Note Received handoff report from Frida CORDERO [facility] Emergency department Note 01-08-2023 Frida Pritchett RN - 01/08/2023 6:01 PM EDT Note Date & Type Note Facility 01-08-2023 Emergency departm ent Note Pt. Unable to provide urine sample at this time [facility] Physician Emergency department Note 01-08-2023 Daniel Tay [...] discharge home. Daniel Tay MD 01/08/23 1846 [facility] Work Phone: Evaluation note Note Date & Type Note Facility documented in this encounter [facility] Hospital Discharge instructions Attachments Note Date & Type Note Facility Hospital Discharge instructions The following attachments cannot be sent through Care Everywhere.Abdominal Pain (Azeri)documented in this encounter [facility] Reason for referral (narrative) Consultation (Urgent) - New Request Note Date & Type Note Facility Referral ID Status Reason Start Date Expiration Date V isits Requested Visits Authorized [id number] New Request 01/08/2023 02/02/2024 1 1 [facility] Discharge Instructions * Attachments The following attachments cannot be sent through Care Everywhere. * Cellulitis (Azeri) documented in this encounter Assessments Diagnosis Cellulitis of left lower extremity Advance Directives No Advanced Directives Records FoundDocuments on File Type Date Recorded Patient Cookie Padder Expl anation Advance Directives and Livin g [...] DATE CREATED AUTHOR AUTHOR'S ORGANIZ ATION 02/22/2021 [facility] DATE CREATED AUTHOR AUTHOR'S ORGANIZ ATION 02/15/2022 [facility] DATE CREATED AUTHOR AUTHOR'S ORGANIZ ATION 01/13/2023 [facility] chan <item> Privacy Markings (unrecogniz ed section [...] BE BASED ON THE PRIMARY CLINICAL RECORDS. [facility]. provides no warranty or guarantee of the accuracy or completeness of information in this document.
== END 2023-07-07 18:38 | disposition home or self-care (01) ==
LOC: ED 18:36
PROVIDERS: Emergency Provider Student in an Organized Health Care Education/Training Program; Visit Provider Student in an Organized Health Care Education/Training Program
DX: S02.5XXA Fracture of tooth (traumatic), initial encounter for closed fracture (principal); K02.9 Dental caries, unspecified; X58.XXXA Exposure to other specified factors, initial encounter
CPT/HCPCS: 96372; 99282

== ENCOUNTER 2024-03-25 19:14 | Emergency (ER) | payer MEDICAID, SELFPAY ==
[2024-03-25 19:15] VITALS: BP 115/72; PULSE 92; RESP 16; TEMP 35.9; O2SAT 100; BMI 31.6
--- NOTE | 2024-03-25 20:08 | EX.ED.DYSGE1 ---
HPI History of Present Illness Chief Complaint: Dental Detail of Chief Complaint: Dental pain Informant: patient Narrative Narrative: Patient presents to the emergency department with complaint of dental pain that started around 4 AM this morning. Patient states that she has a broken and cracked right lower molar and has an appointment to see a dentist but not till April. Patient denies any trauma. She has had no fever. It hurts every time she tries to chew on that side. Her boss at work gave her a temporary filling that she put on and now she cannot get it off. She denies fevers or chills or sweats. [facility] Medical History Abrasion of right leg Bipolar disorder Depressed Mild dehydration Other tear of lateral meniscus, current injury, right knee, subsequent encounter Other tear of medial meniscus, current injury, right knee, initial encounter (09/19/16) Sprain of anterior cruciate ligament of right knee, initial encounter (08/16/16) Sprain of anterior cruciate ligament of right knee, subsequent encounter Home Medications ?Medication ?Instructions ?Recorded ?Last Taken ?Type doxycycline hyclate 100 mg tablet 100 mg PO BID #14 tabs 05/11/23 Unknown Rx clindamycin HCl 150 mg capsule 300 mg (2 x 150 mg) PO 4X/DAY #80 03/25/24 Unknown Rx CAPSULES hydrocodone-acetaminophen 5-325mg 1 tab PO Q4H PRN PRN Pain 2 days 03/25/24 Unknown Rx 5mg-325mg #14 TABLETS Allergy/AdvReac Type Severity Reaction Status Date / Time morphine Allergy Anaphylaxis Verified 03/25/24 19:17 Family History Other CVA (cerebral vascular accident) Hypertension Lymph node cancer Myocardial infarction Surgical History CEOT removed from jaw right knee ACL Social History current occupational status: employed Smoking Status: Never smoker ROS ROS ED Review of Systems ROS Unobtainable: other Constitutional Constitutional ED: Reports lethargy; Denies chills, fever(s), sweats or weight loss Eyes Eyes: Denies blurry vision, change in vision or diplopia ENT ENT ED: Reports other Details: Dental pain ; Denies rhinorrhea or sore throat Cardiovascular Cardiovascular: Denies chest pain, orthopnea or racing heartbeat Respiratory/Chest Respiratory/Chest: Denies cough, dyspnea, dyspnea on exertion, orthopnea or sputum Gastrointestinal Gastrointestinal: Denies abdominal pain, diarrhea, nausea or vomiting Genitourinary Genitourinary ED: Denies dysuria, hematuria or urinary frequency Musculoskeletal Musculoskeletal: Denies arthralgias, back pain, myalgias or neck pain Integumentary Denies abscess, Abrasions or rash Neurologic Neurologic: Denies headache(s) or weakness Psychiatric Psychiatric: Denies anxiety, depression or suicidal thoughts Endocrine Endocrinology: Denies polydipsia, polyphagia or polyuria Hematologic/Lymphatic Hematologic/Lymphatic: Denies easy bleeding, easy bruising or lymphadenopathy Allergic/Immunologic Allergic/Immunologic ED: Denies mouth swelling, tongue swelling or urticaria EXAM Physical Exam Const Vital Signs: 03/25/24 19:15 Temperature 96.6 F L Temperature Source Temporal Pulse Rate 92 Respiratory Rate 16 Blood Pressure 115/72 Blood Pressure Mean 86 Pulse Ox 100 Oxygen Delivery Method Room Air Positive well nourished and well developed General Appearance ED: well developed and NAD HEENT Reports TM's clear and moist mucous membranes HEENT Narrative: Dentition-patient has a broken and carried right lower molar tooth #30 that is tender to palpation. She has a temporary filling in it. There is no gingival erythema or abscess. No facial cellulitis. normocephalic and atraumatic; Negative for trauma or tenderness Tympanic Membrane ED: Yes TM's clear Eyes PERRL and EOMs intact bilaterally General Eye ED: Negative for pale conjunctiva or scleral icterus Neck no lymphadenopathy, supple and no JVD General: Negative for tenderness Chest Wall inspection of chest normal and palpation of chest normal Chest: Negative for tenderness Resp normal respiratory effort and clear to auscultation bilaterally Effort and Inspection: Negative for respiratory distress or pain with movement Auscultation: Negative for rhonchi, wheezes or diminished lung sounds Cardio regular rate, regular rhythm, S1 normal heart sound, S2 normal heart sound and no murmurs Peripheral Pulses: pulses 2+ throughout GI normal to inspection, nondistended, normoactive bowel sounds, soft to palpation, non-tender, non-distended and no masses Back/Spine no CVA tenderness and no thoracic nor lumbar tenderness Extremity normal to inspection General Extremety ED: Negative for edema General Extremity: Negative for edema Neuro oriented x3, CN's II-XII intact bilaterally, no sensory deficits noted and gait normal Sensorium / Orientation: awake, alert, oriented to person, oriented to place and oriented to time Motor Exam: strength 5/5 throughout and strength abnormal Psych mental status grossly normal Skin no rashes or lesions noted and no wounds MDM MDM MDM Narrative Medical decision making narrative: Patient presents with dental pain. She has a temporary filling in place. Will start on clindamycin and Sullivan for pain. Will give a list of dentist in the area that she can try to call and see if she can get in sooner than April to be evaluated for this. Discharge Plan Triage Chief Complaint: Dental ED Provider: Carmela Larsen Dx/Rx/DC Orders Clinical Impression: Pain, dental Instructions: ED Dental Pain Prescriptions: New hydrocodone-acetaminophen 5-325 mg tablet 1 tab PO Q4H PRN PRN (Reason: Pain) 2 Days Qty: 14 0RF clindamycin HCl 150 mg capsule 300 mg PO 4X/DAY Qty: 80 0RF No Action doxycycline hyclate 100 mg tablet 100 mg PO BID Qty: 14 0RF Primary Care Provider: Care Physician,No Primary Referrals: Care Physician,No Primary [Primary Care Provider] - Activity Restrictions/Additional Instructions: Follow-up with a dentist at the earliest possible time Print Language: Arabic Disposition Disposition: Home, Self Care
== END 2024-03-25 20:21 | disposition home or self-care (01) ==
PROVIDERS: Emergency Provider Emergency Medicine; Visit Provider Emergency Medicine
DX: S02.5XXA Fracture of tooth (traumatic), initial encounter for closed fracture (principal); F31.9 Bipolar disorder, unspecified; X58.XXXA Exposure to other specified factors, initial encounter; K02.9 Dental caries, unspecified; Z98.811 Dental restoration status
CPT/HCPCS: 99282